=== PATIENT | female | born 1935 | race Caucasian/White ===

== ENCOUNTER → 2016-10-01 | Outpatient (CLI) | payer OTHER, MEDICARE ==
[~2016-10-01] MED LIST: FMR25 PO; LEVO100T7 PO; LNX125 PO; METO-217 PO; METO-551 PO; MULTTAB58 PO; PRLSR20 PO; RIVA1TAB4 PO; SIMV10TA2 PO; ZOLP10TA6 PO
== END | disposition home or self-care (01) ==
LOC: C.PATHSPEC 15:39
PROVIDERS: ATTEND Surgery
DX: C50.912 Malignant neoplasm of unspecified site of left female breast (principal)

== ENCOUNTER → 2016-10-14 | Outpatient (CLI) | payer OTHER, MEDICARE ==
--- NOTE | 2016-10-14 15:00 | MAMMOGRAPHY REPORT ---
THIS REPORT HAS BEEN AMENDED. UNILATERAL LEFT DIGITAL DIAGNOSTIC MAMMOGRAM TOMOSYNTHESIS WITH CAD AND TARGETED LEFT ULTRASOUND: CLINICAL HISTORY: 81-year-old woman presents prior to radiation therapy in the left breast. She has a large palpable mass at the surgical site status post lumpectomy. TECHNIQUE: Left breast CC and MLO 2-D digital and tomosynthesis images and left X cc L views were o btained. Current study was also evaluated with a Computer Aided Detection (CAD) system. COMPARISON: Comparison is made to exams dated: 08/28/2016 specimen, 08/28/2016 localization, and 07/23 mammogram - [facility]. BREAST COMPOSITION: The tissue of the left breast is heterogeneously dense, which may obscure small masses. FINDINGS: There is a new large dense ovoid mass with indistinct borders occupying the superior, cent ral and lateral left breast, measuring approximately 8 x 5 cm in greatest dimension 2 new surgical c lips are seen in place in the left upper outer posterior breast. There are moderate vascular calcif ications. There is diffuse left breast skin thickening and trabecular edema, likely related to prio r surgery. Further characterization with ultrasound was performed. Real-time high-resolution sonographic evaluation was performed along the surgical scar in the upper outer quadrant of the left breast over the visible mass which was pointed out by the patient. There is also mild skin ecchymosis in the area of the mass noted on visual inspection. Approximate measu rements obtained based on visual evaluation of the mass on the skin surface are 5 x 10 cm. On ultra sound, there is a mixed echogenicity predominantly hypoechoic and anechoic cystic appearing mass wit h posterior acoustic enhancement. The internal echoes are somewhat lacelike and reticular. It is d ifficult to obtain accurate measurements on ultrasound to given that the mass is larger in the field -of-view. Again, mammographic measurements are approximately 8 x 5 cm. Differential considerations include a postsurgical seroma, hematoma and abscess. After further discussion with the patient, freddie vargas denies any fevers, chills, erythema or other signs to suggest abscess. Therefore, this most likel y represents a postsurgical hematoma. IMPRESSION: ACR BI-RADS CATEGORY 2: BENIGN, TARGETED ULTRASOUND ACR BI-RADS CATEGORY 2: BENIGN There is evidence of recent surgery within the left breast with a new large (8 x 5 cm) mixed echogen icity fluid collection occupying most of the superior and lateral breast in the area of prior surger y. Given that the patient denies any symptoms of fever, chills, warmth or tenderness over the area of concern, this is not thought to represent an abscess and an evolving post surgical hematoma is th e most likely process. Given the amount of internal echoes it is doubtful this would be amenable to percutaneous drainage. These results and recommendations were discussed with the patient at the time of the exam. Approximately 10% of breast cancers are not detected with mammography. A negative mammographic repor t should not delay biopsy if a clinically suggestive mass is present. Odette Pate M.D. ay/:10/14/2016 12:44:47 Garage Attendant: Shira ROBLES(Nettie)(M), [facility] letter sent: Normal 1/ BI-RADS Code: ACR BI-RADS Category 2: Benign Ultrasound BI-RADS: ACR BI-RADS Category 2: Benign AMENDMENT: 10/17/2016 Odette Pate M.D. In addition to evaluating the left breast palpable mass, targeted sonographic evaluation was perform ed in the left axilla to assess for any suspicious lymphadenopathy. 2 lymph nodes are identified. The first lymph node identified in the mid axilla measures 10 mm in length. It maintains a normal e chogenic fatty hilum and has a mildly undulating thin hypoechoic cortex. Measured in different loca tions, the cortical thickness ranges from 0.6 to 2.6 mm. The cortical thickness is within the range of normal and this lymph node is considered morphologically normal. It is similar in size and marge ical thickness as on the 08/07/2016 ultrasound. A second smaller lymph node measuring 6.[address] [facility] has a cortical thickness of 0.8 mm. This also maintains a normal prominent echogenic fatty hilu m. No suspicious left axillary lymphadenopathy is seen. These results were discussed with Dr. Copeland on 10/16/2016. After further discussion it seems reason able to repeat a targeted left axillary ultrasound when the patient follows up in 6 months after rad iation therapy. Amended BI-RADS: ACR BI-RADS Category 2: Benign
== END | disposition home or self-care (01) ==
LOC: C.MAMM 10:29
PROVIDERS: ATTEND Radiology Radiation Oncology
DX: I89.0 Lymphedema, not elsewhere classified (principal); Z98.890 Other specified postprocedural states

== ENCOUNTER → 2016-10-29 | Outpatient (CLI) | payer OTHER, MEDICARE ==
--- NOTE | 2016-10-29 13:09 | MAMMOGRAPHY REPORT ---
ASPIRATION LEFT BREAST: 10/29/2016 CLINICAL HISTORY: 81-year-old woman with left breast cancer status post lumpectomy on 08/28/2016 pre sents for attempted aspiration of a postsurgical seroma/evolving hematoma prior to radiation therapy . COMPARISON: Comparison is made to exams dated: 10/14/2016 mammogram, 10/14/2016 ultrasound, 08/28/2016 specimen, 08/09/2016 mammogram, and 08/09/2016 ultrasound biopsy - [facility]. PATIENT CONSENT: After explaining the risks, benefits and alternatives of the procedure to the patie nt, informed consent was obtained verbally and in writing. Specific risks include: bleeding, infecti on and puncture of adjacent structure. A time out was preformed in the left breast was agreed as the site for fluid collection aspiration. Prior to aspiration, repeat targeted ultrasound was performed in the area of mass, most likely repre senting an evolving postsurgical hematoma. The hematoma is more hypoechoic as opposed to anechoic a nd there are less interspersed anechoic cystic spaces when comparing to prior ultrasounds. This is expected evolution of blood products. Nevertheless, the skin of the left breast was prepped and temo ped in the usual sterile fashion. 1% buffered lidocaine without epinephrine was administered subcut aneously and intraparenchymally as local anesthesia. A 22-gauge needle was advanced to the site of the mass and aspiration was performed. No significant fluid was able to be aspirated. Then the nee dle switched to an 18-gauge needle and aspiration was again performed. Again, no significant fluid was able to be aspirated. These findings confirm thick fibrinous blood products. Then the procedur e was terminated and the patient left the department in satisfactory condition after holding mild pr essure for a few minutes after the procedure. IMPRESSION: ASPIRATION Status post attempted aspiration of a probable evolving postsurgical hematoma at the lumpectomy bed in the 12:00 to 2:00 axes of the left breast. No significant fluid was able to be aspirated from th e collection. These findings were discussed with the patient at the time of the exam. Await follow-up of the left breast at approximately 6 months status post radiation therapy. Odette Pate M.D. ay/:10/29/2016 12:44:39 Booster Operator: Shira Taylor, [facility]
== END | disposition home or self-care (01) ==
LOC: C.MAMM 09:31
PROVIDERS: ATTEND Surgery
DX: C50.912 Malignant neoplasm of unspecified site of left female breast (principal); N64.89 Other specified disorders of breast; Z98.890 Other specified postprocedural states

== ENCOUNTER → 2016-12-25 | Outpatient (CLI) | payer OTHER, MEDICARE ==
[2016-12-25 13:34] VITALS: BP 135/78; PULSE 64; TEMP 36.6; O2SAT 94
--- NOTE | 2016-12-25 14:52 | Radiation Oncology Follow-Up ---
Radiation Oncology Follow-Up Date of Visit Dec 25, 2016. (Bhavana Torres PA-C) Reason For Visit One-month follow-up (Bhavana Torres PA-C) Radiation Completion Date finished 11-20-2016 and 09-29-2000 to left breast (Bhavana Torres PA-C) Diagnosis (1) Carcinoma of left breast Status: Acute Onset Date: 08/09/2016 Stage: l Permanent Comment: STAGIN. Left breast cancer, IDC, triple negative, [id number], stage II - 1999 2. Left breast cancer, IDC, triple positive, grade 3, [id number], stage I - 2017 Status post left breast biopsy 03/14/2000 revealing adenocarcinoma Estrogen receptor negative progesterone receptor negative HER-2/catherine negative Status post lumpectomy and sentinel lymph node biopsy 04/02/2000 Stage pT1c pN1 M0 Systemic chemotherapy Status post completion of radiation therapy 09/29/2000 received 6120 cGy Abnormal left breast mammogram 07/26/2016 Status post biopsy revealing infiltrating ductal carcinoma grade 1, 08/09/2016 Estrogen receptor positive, progesterone receptor positive, HER-2/catherine positive Status post lumpectomy 08/28/2016 Stage pT1b NX Status post completion of radiation therapy 11/20/2016 received 3850 cGy Last Edited By: Bhavana Torres on Dec 06, 2016 12:48 (Bhavana Torres PA-C) History of Present Illness Ms. Mo is a 81-year-old female with a previous history of stage II left breast cancer (triple negative) treated with a lumpectomy/ALND, adjuvant chemotherapy and adjuvant radiation therapy which completed in 2000. More recently, the patient did have a bilateral screening mammogram on 07/26/2016 which did reveal a 9 mm mass in the left upper-outer quadrant of the left breast. She did undergo a left diagnostic mammogram with targeted ultrasound on 08/07/2016 which revealed an indeterminate microlobulated 9.5 mm hypoechoic solid mass in the left 1:00 breast. 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 The tumor was estrogen receptor positive, progesterone receptor positive and HER-2 positive. The patient was subsequently referred to Dr. Elder Zhang who discussed treatment options including mastectomy and lumpectomy. Based on the patient's age and personal request, the patient underwent a lumpectomy without sentinel lymph node assessment. 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 There was no evidence of lymphovascular space invasion or perineural invasion. The margins were negative. The tumor was stages pathologic [id number]. The patient was subsequently seen by Dr. Stefan Huddleston for medical oncology who potentially discussed both anti-hormonal therapy and systemic chemotherapy due to the Her2 positivity. Dr. Huddleston did also discuss the role of a potential lymph node dissection with Dr. Zhang and the role of it is still currently being evaluated. We were asked to evaluate the patient for consideration of radiation therapy. Because of the prior radiation therapy it was felt that the patient would best be treated with accelerated partial breast treatment. This was completed on 09/2016. She received 3850 cGy. (Bhavana Torres PA-C) Interim History She's been doing well over this past month. She did notice a the past 2 days an area of redness in the outer upper outer portion of the left breast. She denies any pain. There is been no peeling of the skin. No areas of drainage. She has noticed no change of the axilla. She's been seen by medical oncology and has started Femara. She is tolerating this well and has no side effects. She is currently not set up for mammography. (Bhavana Torres PA-C) Allergies Coded Allergies: No Known Allergies (Verified , 08/28/16) Home Medications Scheduled Digoxin (Digoxin), 0.125 MG PO Q2D Letrozole (Femara), 2.5 MG PO DAILY Levothyroxine Sodium (Levothyroxine Sodium), 1 TAB PO QAM Metoprolol Succinate (Toprol Xl), 50 MG PO BID Multiple Vitamin (Multivitamin), 1 TAB PO QAM Omeprazole (Prilosec), 20 MG PO BID Rivaroxaban (Xarelto), 20 MG PO QPM Simvastatin (Zocor), 10 MG PO HS Zolpidem Tartrate (Zolpidem Tartrate), 7.5 MG PO HS Scheduled PRN Metoprolol Tartrate (Lopressor), 50 MG PO for palpitatons Review of Systems Gastrointestinal: Symptoms: WNL Oral: Symptoms: No Problems Respiratory: Symptoms: WNL Other Respiratory: " sinus drainage " Urinary: Symptoms: WNL Skin: Symptoms: No Problems Breast: Right Upper Arm Measurement: 30.5 Right Mid Arm Measurement: 25.0 Right Wrist Measurement: 17.0 Left Upper Arm Measurement: 31.4 Left Mid Arm Measurement: 25.0 Left Wrist Measurement: 17.5 Arm Dominence: Right Patient Cosmetic Evaluation: Fair Staff Cosmetic Evalaluation: Fair Additional Notes: She completed a distress management report and answered "no" to all questions. (Bhavana Torres PA-C) Physical Exam Vital Signs Date Time Temp Pulse Resp B/P Pulse Ox O2 Delivery O2 Flow Rate FiO2 12/25/16 13:34 36.6 64 16 135/78 94 Pain: Side: Bilateral Patient Pain Scale: 0 - 10 Initial Pain Intensity: 0.0 Fatigue: None General Appearance: no apparent distress Eyes: normal inspection, EOMI ENT: normal ENT inspection, hearing grossly normal Neck: no adenopathy, thyroid normal Respiratory/Chest: lungs clear, no respiratory distress, no accessory muscle use Breast: Breast examination reveals well-healed incisions of the left breast. There is a small area of erythema in the upper outer quadrant. There is no wet or dry desquamation. The firmness of the seroma is steadily improving. There is no axillary adenopathy. Using the [place] score cosmesis she has a good outcome. The right breast showed no masses or tenderness no axillary adenopathy. Cardiovascular: regular rate, rhythm, no gallop, no murmur Extremities: no pedal edema Neurologic/Psychiatric: no motor/sensory deficits, alert, normal mood/affect (Bhavana Torres PA-C) Laboratory Studies Test 10/01/16 00:00 HER-2 (FISH) See Comment (Bhavana Torres PA-C) Assessment & Plan Plan: She was also seen and examined by Dr. Copeland. She was given Aquaphor to the provider to the area of erythema. We discussed that the seroma steadily improving. Digital diagnostic mammography was scheduled. We'll check the left breast in 2 months. She'll also have an ultrasound of the axilla. She will have bilateral mammography in 8 months. She continues on the Femara. Continue follow-up with Dr. Huddleston and her PCP. We asked her to return to our office in 6 months. She will call if she has any questions or concerns in the interim. (Bhavana Torres PA-C) I agree with note created by Bhavana Torres PA-C. I reviewed the patient's chart and information with her. I have examined and evaluated the patient. I reviewed relevant clinical information and answered the patient's and/or family' s questions. (Veeral. Copeland MD) Total Time In Follow-Up I spent 20 minutes speaking to the patient and performing examination. As spent 15 minutes reviewing information and completing this note. (Bhavana Torres PA-C) I spent 15 minutes examining and counseling the patient. (Veeral. Copeland MD) Copy To Stefan Huddleston MD; Karin De La Cruz,
== END | disposition home or self-care (01) ==
LOC: C.ONC 13:16
PROVIDERS: ATTEND Physician Assistant Medical
DX: Z08 Encounter for follow-up examination after completed treatment for malignant neoplasm (principal); Z92.3 Personal history of irradiation; Z85.3 Personal history of malignant neoplasm of breast

== ENCOUNTER → 2017-02-26 | Outpatient (CLI) | payer OTHER, MEDICARE ==
[2017-02-26 17:21] LABS: BASO % 0.5 %; BASO ABS # 0.03 K/uL (0-0.2); COMPLETE YES; EOS % 5.2 %; HEMATOCRIT 45.1 % (37-47); IG% 0.2 %; LYMPH % 34.4 %; LYMPH ABS # 2.06 K/uL (1.2-3.4); MEAN CELL VOLUME 89.1 fL (80-100); MEAN CORPUSCULAR HGB CONC 33.7 g/dl (32-36); MEAN PLATELET VOLUME 9.7 fL (7.4-10.4); NEUT % 51.7 %; PLATELET COUNT 189 K/uL (130-400); RED BLOOD COUNT 5.06 M/uL (4.2-5.4); WHITE BLOOD COUNT 5.98 K/uL (4.8-10.8)
[2017-02-26 18:15] LABS: ALT/SGPT 32 U/L (12-78); BLOOD UREA NITROGEN 11 mg/dl (7-18); CARBON DIOXIDE 25 mmol/L (21-32); CHLORIDE 106 mmol/L (98-107); CREATININE 0.66 mg/dl (0.60-1.20); GLUCOSE 112 mg/dl (70-99); POTASSIUM 3.9 mmol/L (3.5-5.1); SODIUM 142 mmol/L (136-145)
[2017-02-26 18:18] LABS: ALB/GLOB RATIO 1.1 (0.9-2); ALKALINE PHOSPHATASE 49 U/L (45-117); AST/SGOT 20 U/L (15-37)
[2017-02-26 18:35] LABS: CALCIUM 9.3 mg/dl (8.5-10.1)
== END | disposition home or self-care (01) ==
LOC: C.LABPBG 11:52
PROVIDERS: ATTEND Internal Medicine Hematology & Oncology
DX: C50.112 Malignant neoplasm of central portion of left female breast (principal)

== ENCOUNTER → 2017-03-18 | Outpatient (CLI) | payer OTHER, MEDICARE ==
--- NOTE | 2017-03-18 15:39 | MAMMOGRAPHY REPORT ---
UNILATERAL LEFT DIGITAL DIAGNOSTIC MAMMOGRAM TOMOSYNTHESIS WITH CAD AND TARGETED LEFT ULTRASOUND: 02/21 CLINICAL HISTORY: 82-year-old woman with a history of left breast cancer diagnosed in July 2016 p resents to establish new baseline in the left breast after lumpectomy and radiation therapy. TECHNIQUE: Left CC and MLO 2-D digital and tomosynthesis images, spot magnification left CC and ML v iews were obtained. Current study was also evaluated with a Computer Aided Detection (CAD) system. COMPARISON: Comparison is made to exams dated: 10/29/2016 aspiration, 10/14/2016 mammogram, 08/28/2016 s pecimen, 08/28/2016 localization, 08/09/2016 mammogram, and 08/09/2016 ultrasound biopsy - [facility]. BREAST COMPOSITION: The tissue of the left breast is heterogeneously dense, which may obscure small masses. FINDINGS: There is evidence of prior treatment in the left breast including diffuse trabecular edema and mild diffuse skin thickening. A complex fluid collection in the upper outer quadrant of the left breast has decreased in size since the prior mammograms performed 10/14/2016, currently measuring 2. 6 x 5.6 x 2.3 cm, previously measuring 4.7 x 8.0 x 5.2 cm. This is compatible with a resolving posts urgical seroma and/or hematoma. There are are moderate vascular calcifications in the left breast. No suspicious mass, architectural distortion or cluster of suspicious microcalcifications. Targeted ultrasound was performed in the left axilla. A few morphologically normal lymph nodes withi n cortices are seen. There is no evidence of suspicious adenopathy. IMPRESSION: ACR-BI-RADS CATEGORY 3: PROBABLY BENIGN, TARGETED ULTRASOUND ACR-BI-RADS CATEGORY 3: PRO BABLY BENIGN Expected post treatment changes in the left breast with a decreasing postsurgical seroma/hematoma carroll r the surgical site in the upper outer quadrant. No suspicious adenopathy seen in the left axilla on targeted ultrasound. Bilateral diagnostic mammography is due in July 2017. These results and r ecommendations were discussed with the patient at the time of the exam. Approximately 10% of breast cancers are not detected with mammography. A negative mammographic report should not delay biopsy if a clinically suggestive mass is present. Odette Pate M.D. ay/:03/18/2017 14:25:32 Commodities Requirements Analyst: Madeline Talavera RT(R)(M), [facility] letter sent: Follow Up Recommended 3 BI-RADS Code: ACR-BI-RADS Category 3: Probably Benign Ultrasound BI-RADS: ACR-BI-RADS Category 3: Pr obably Benign
== END | disposition home or self-care (01) ==
LOC: C.MAMM 13:50
PROVIDERS: ATTEND Physician Assistant Medical
DX: Z08 Encounter for follow-up examination after completed treatment for malignant neoplasm (principal); Z85.3 Personal history of malignant neoplasm of breast; Z98.890 Other specified postprocedural states; Z92.3 Personal history of irradiation

== ENCOUNTER → 2017-07-01 | Outpatient (CLI) | payer OTHER, MEDICARE ==
[2017-07-01 12:52] VITALS: BP 114/71; PULSE 65; TEMP 36.6; O2SAT 95
--- NOTE | 2017-07-01 13:37 | Radiation Oncology Follow-Up ---
Radiation Oncology Follow-Up Date of Visit Jul 01, 2017. Reason For Visit 6 month follow up Radiation Completion Date finished 11-20-16 , 09-29-2000 / left breast Diagnosis (1) Carcinoma of left breast Status: Acute Onset Date: 08/09/2016 Permanent Comment: STAGIN. Left breast cancer, IDC, triple negative, [id number], stage II - 1999 2. Left breast cancer, IDC, triple positive, grade 3, [id number], stage I - 2017 Status post left breast biopsy 03/14/2000 revealing adenocarcinoma Estrogen receptor negative progesterone receptor negative HER-2/catherine negative Status post lumpectomy and sentinel lymph node biopsy 04/02/2000 Stage pT1c pN1 M0 Systemic chemotherapy Status post completion of radiation therapy 09/29/2000 received 6120 cGy Abnormal left breast mammogram 07/26/2016 Status post biopsy revealing infiltrating ductal carcinoma grade 1, 08/09/2016 Estrogen receptor positive, progesterone receptor positive, HER-2/catherine positive Status post lumpectomy 08/28/2016 Stage pT1b NX Status post completion of radiation therapy 11/20/2016 received 3850 cGy Last Edited By: Bhavana Torres on Dec 06, 2016 12:48 History of Present Illness Ms. Belcher is a 81-year-old female with a previous history of stage II left breast cancer (triple negative) treated with a lumpectomy/ALND, adjuvant chemotherapy and adjuvant radiation therapy which completed in 2000. More recently, the patient did have a bilateral screening mammogram on 07/26/2016 which did reveal a 9 mm mass in the left upper-outer quadrant of the left breast. She did undergo a left diagnostic mammogram with targeted ultrasound on 08/07/2016 which revealed an indeterminate microlobulated 9.5 mm hypoechoic solid mass in the left 1:00 breast. 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 The tumor was estrogen receptor positive, progesterone receptor positive and HER-2 positive. The patient was subsequently referred to Dr. Elder Zhang who discussed treatment options including mastectomy and lumpectomy. Based on the patient's age and personal request, the patient underwent a lumpectomy without sentinel lymph node assessment. 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 There was no evidence of lymphovascular space invasion or perineural invasion. The margins were negative. The tumor was stages pathologic T1bNx. The patient was subsequently seen by Dr. Stefan Huddleston for medical oncology who potentially discussed both anti-hormonal therapy and systemic chemotherapy due to the Her2 positivity. Dr. Huddleston did also discuss the role of a potential lymph node dissection with Dr. Zhang and the role of it is still currently being evaluated. We were asked to evaluate the patient for consideration of radiation therapy. Because of the prior radiation therapy it was felt that the patient would best be treated with accelerated partial breast treatment. This was completed on 09/2016. She received 3850 cGy. Interim History She has been doing well over this past year. She denies any changes to her breast. She is noted no masses or tenderness and no change of the axilla. She' s had no swelling of her arm. She is up-to-date on mammography. She was seen in medical oncology evidence was taking Femara. She developed increasing fatigue and recurrent hot flashes. She discuss this with Dr. Huddleston. He gave her a new antiestrogen medication. She stated she took this to the pharmacy and it was going to be quite expensive. She made the decision not to take the medication. Allergies Coded Allergies: No Known Allergies (Verified , 08/28/16) Home Medications Scheduled Digoxin (Digoxin), 0.125 MG PO Q2D Levothyroxine Sodium (Levothyroxine Sodium), 1 TAB PO QAM Metoprolol Succinate (Toprol Xl), 50 MG PO BID Multiple Vitamin (Multivitamin), 1 TAB PO QAM Omeprazole (Prilosec), 20 MG PO BID Rivaroxaban (Xarelto), 20 MG PO QPM Simvastatin (Zocor), 10 MG PO HS Zolpidem Tartrate (Zolpidem Tartrate), 7.5 MG PO HS Scheduled PRN Metoprolol Tartrate (Lopressor), 50 MG PO for palpitatons Review of Systems Gastrointestinal: Symptoms: WNL Oral: Symptoms: No Problems Respiratory: Symptoms: WNL Other Respiratory: " sinus drainage " Urinary: Symptoms: Incontinence Comments: "dribbles in the Am " Skin: Symptoms: No Problems Other Skin Symptoms: "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 " Breast: Right Upper Arm Measurement: 28.0 Right Mid Arm Measurement: 24.0 Right Wrist Measurement: 16.3 Left Upper Arm Measurement: 30.0 Left Mid Arm Measurement: 24.3 Left Wrist Measurement: 16.8 Arm Dominence: Right Patient Cosmetic Evaluation: Excellent Staff Cosmetic Evalaluation: Excellent Physical Exam Vital Signs Date Time Temp Pulse Resp B/P (MAP) Pulse Ox O2 Delivery O2 Flow Rate FiO2 07/01/17 12:52 36.6 65 16 114/71 95 Pain: Side: Bilateral Patient Pain Scale: 0 - 10 Initial Pain Intensity: 0.0 Fatigue: Moderate General Appearance: no apparent distress Eyes: normal inspection, EOMI ENT: normal ENT inspection, hearing grossly normal Neck: no adenopathy, thyroid normal Respiratory/Chest: lungs clear, no respiratory distress, no accessory muscle use Breast: Breast examination reveals well-healed incisions of the left breast. There is generalized fibrous changes. There are no distinct masses. There is no tenderness. She has no axillary adenopathy. Mild hyperpigmentation. Using the [place] score cosmesis she has a good outcome. Right breast showed no masses or tenderness and no axillary adenopathy. Mild fibrocystic changes in the upper outer quadrant. Cardiovascular: regular rate, rhythm, no gallop, no murmur Abdomen: non tender, soft, no organomegaly Extremities: no pedal edema Neurologic/Psychiatric: no motor/sensory deficits, alert, normal mood/affect Skin: warm/dry Additional Studies Patient: LUPILLO BELCHER [facility] Rec: [id number] Address1: [address] [place] [address] Address2: Acct ID: [id number] Date: 1935 Sex: F Ref Phy: Bhavana Torres PA-C Att Phy: Bhavana Torres PA-C Katey Phy: Karin De La Cruz DO Inter Phy: Odette Pate MD [facility] Zip: [place] [address] SC: C.MAMM Report #: [id number] Loss Prevention Operations Manager: MARTINE Diagnosis: 6 MO F/U LEFT Service Date: 03/18/17 MNE: [id number] Ordering Dr: Bhavana Torres PA-C CC: Bhavana Torres PA-C CONF: DICTATED BY: Odette Pate MD MAMMOGRAPHY REPORT UNILATERAL LEFT DIGITAL DIAGNOSTIC MAMMOGRAM TOMOSYNTHESIS WITH CAD AND TARGETED LEFT ULTRASOUND: 03/18/2017 CLINICAL HISTORY: 82-year-old woman with a history of left breast cancer diagnosed in July 2016 presents to establish new baseline in the left breast after lumpectomy and radiation therapy. TECHNIQUE: Left CC and MLO 2-D digital and tomosynthesis images, spot magnification left CC and ML views were obtained. Current study was also evaluated with a Computer Aided Detection (CAD) system. COMPARISON: Comparison is made to exams dated: 10/29/2016 aspiration, 10/14/2016 mammogram, 08/28/2016 specimen, 08/28/2016 localization, 08/09/2016 mammogram, and 08/09/2016 ultrasound biopsy - [facility]. BREAST COMPOSITION: The tissue of the left breast is heterogeneously dense, which may obscure small masses. FINDINGS: There is evidence of prior treatment in the left breast including diffuse trabecular edema and mild diffuse skin thickening. A complex fluid collection in the upper outer quadrant of the left breast has decreased in size since the prior mammograms performed 10/14/2016, currently measuring 2.6 x 5.6 x 2.3 cm, previously measuring 4.7 x 8.0 x 5.2 cm. This is compatible with a resolving postsurgical seroma and/or hematoma. There are are moderate vascular calcifications in the left breast. No suspicious mass, architectural distortion or cluster of suspicious microcalcifications. Targeted ultrasound was performed in the left axilla. A few morphologically normal lymph nodes within cortices are seen. There is no evidence of suspicious adenopathy. IMPRESSION: ACR-BI-RADS CATEGORY 3: PROBABLY BENIGN, TARGETED ULTRASOUND ACR-BI -RADS CATEGORY 3: PROBABLY BENIGN Expected post treatment changes in the left breast with a decreasing postsurgical seroma/hematoma near the surgical site in the upper outer quadrant. No suspicious adenopathy seen in the left axilla on targeted ultrasound. Bilateral diagnostic mammography is due in July 2017. These results and recommendations were discussed with the patient at the time of the exam. Approximately 10% of breast cancers are not detected with mammography. A negative mammographic report should not delay biopsy if a clinically suggestive mass is present. Odette Pate M.D. ay/:03/18/2017 14:25:32 Dietary Aide Cook: Madeline BELCHER)(Nyla), [facility] letter sent: Follow Up Recommended 3 BI-RADS Code: ACR-BI-RADS Category 3: Probably Benign Ultrasound BI-RADS: ACR- BI-RADS Category 3: Probably Benign Dictated by: Odette Pate MD Signed by: Odette Pate MD Assessment & Plan Plan: She has a recheck mammogram scheduled for the end of June. This will be a diagnostic mammogram. It will be bilateral. She'll continue follow-up with her primary care physician. She has made the decision not to take any further antiestrogen therapy. We discussed recheck breast examination. She plan to return for recheck examination in 6 months to our office. Results of the mammogram in June will be reviewed. She may call if she has any questions or concerns in the interim. Total Time In Follow-Up I spent 20 minutes speaking with the patient performing examination. I spent 15 minutes reviewing information completing this note. Copy To Karin De La Cruz DO Problem Qualifiers (1) Carcinoma of left breast: Breast location: upper outer quadrant of breast Estrogen receptor status: positive Patient sex: female Qualified Codes: C50.412 - Malignant neoplasm of upper-outer quadrant of left female breast; Z17.0 - Estrogen receptor positive status [ER+]
== END | disposition home or self-care (01) ==
LOC: C.ONC 12:44
PROVIDERS: ATTEND Physician Assistant Medical
DX: Z08 Encounter for follow-up examination after completed treatment for malignant neoplasm (principal); Z92.3 Personal history of irradiation; Z85.3 Personal history of malignant neoplasm of breast

== ENCOUNTER → 2017-07-18 | Outpatient (CLI) | payer OTHER, MEDICARE ==
[~2017-07-18] MED LIST changes: -FMR25 PO
[2017-07-18 17:28] LABS: ALT/SGPT 48 U/L (12-78); AST/SGOT 23 U/L (15-37); BLOOD UREA NITROGEN 9 mg/dl (7-18); BUN/CREATININE RATIO 15.2 (10-20); CALCIUM 8.9 mg/dl (8.5-10.1); CARBON DIOXIDE 28 mmol/L (21-32); CHLORIDE 107 mmol/L (98-107); CREATININE 0.62 mg/dl (0.60-1.20); GLUCOSE 101 mg/dl (70-99); POTASSIUM 3.6 mmol/L (3.5-5.1); SODIUM 141 mmol/L (136-145)
[2017-07-18 17:40] LABS: ALB/GLOB RATIO 1.1 (0.9-2); ALKALINE PHOSPHATASE 46 U/L (45-117); CHOLESTEROL 164 mg/dl (0-200); CHOLESTEROL/HDL RATIO 3.3; HDL CHOLESTEROL 50 mg/dl; LDL CHOLESTEROL CALCULATED 86 mg/dl; TRIGLYCERIDES 138 mg/dl (0-150); VERY LOW DENSITY LIPOPROT CALC 28 mg/dl
== END | disposition home or self-care (01) ==
LOC: C.LABPBG 11:34
PROVIDERS: ATTEND Family Medicine
DX: E03.9 Hypothyroidism, unspecified (principal); E78.00 Pure hypercholesterolemia, unspecified

== ENCOUNTER → 2017-09-25 | Outpatient (CLI) | payer OTHER, MEDICARE ==
[~2017-09-25] MED LIST changes: +MGCUDL400 PO
--- NOTE | 2017-10-01 08:19 | CODING QUERY MEDICAL NECESSITY ---
CQSUPPORTING DIAGNOSIS NEEDED A supporting diagnosis is required for the test/procedure performed on this patient in order for us to be reimbursed by the patient's insurance. Please provide a supporting diagnosis for the following test/procedure listed below next to the test name along with your signature. *If there is no additional diagnosis for this patient that would support the following test/procedure please document that below next to the test/procedure. Test(s)/Procedure(s) that require a supporting diagnosis: DOS 09/25/17 URINE CULTURE Provider Signature: Date: Thank you Zina Pete [facility] [employer] Once completed, please kindly fax back to [phone] For questions please call [phone]
== END | disposition home or self-care (01) ==
LOC: C.LABPBG 10:49
PROVIDERS: ATTEND Family Medicine
DX: R42 Dizziness and giddiness (principal)

== ENCOUNTER → 2017-10-14 | Outpatient (CLI) | payer OTHER, MEDICARE ==
[~2017-10-14] MED LIST changes: -MGCUDL400 PO
== END | disposition home or self-care (01) ==
LOC: C.LABPBG 11:58
PROVIDERS: ATTEND Family Medicine
DX: R31.9 Hematuria, unspecified (principal)

== ENCOUNTER → 2017-12-31 | Outpatient (CLI) | payer OTHER, MEDICARE ==
[2017-07-01 12:52] VITALS: BP 114/71; PULSE 65
[2017-12-31 13:03] VITALS: BP 117/72; PULSE 66; TEMP 36.5; O2SAT 94
--- NOTE | 2017-12-31 14:04 | Radiation Oncology Follow-Up ---
Radiation Oncology Follow-Up Date of Visit Dec 31, 2017. Reason For Visit Annual follow-up Radiation Completion Date 11/20/16 Diagnosis (1) Carcinoma of left breast Status: Resolved Onset Date: 08/09/2016 Permanent Comment: STAGIN. Left breast cancer, IDC, triple negative, [id number], stage II - 1999 2. Left breast cancer, IDC, triple positive, grade 3, [id number], stage I - 2017 Status post left breast biopsy 03/14/2000 revealing adenocarcinoma Estrogen receptor negative progesterone receptor negative HER-2/catherine negative Status post lumpectomy and sentinel lymph node biopsy 04/02/2000 Stage pT1c pN1 M0 Systemic chemotherapy Status post completion of radiation therapy 09/29/2000 received 6120 cGy Abnormal left breast mammogram 07/26/2016 Status post biopsy revealing infiltrating ductal carcinoma grade 1, 08/09/2016 Estrogen receptor positive, progesterone receptor positive, HER-2/catherine positive Status post lumpectomy 08/28/2016 Stage pT1b NX Status post completion of radiation therapy 11/20/2016 received 3850 cGy Last Edited By: Bhavana Torres on Dec 06, 2016 12:48 History of Present Illness Ms. Belcher has a previous history of stage II left breast cancer (triple negative) treated with a lumpectomy/ALND, adjuvant chemotherapy and adjuvant radiation therapy which completed in 2000. More recently, the patient did have a bilateral screening mammogram on 07/26/2016 which did reveal a 9 mm mass in the left upper-outer quadrant of the left breast. She did undergo a left diagnostic mammogram with targeted ultrasound on 08/07/2016 which revealed an indeterminate microlobulated 9.5 mm hypoechoic solid mass in the left 1:00 breast. 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 The tumor was estrogen receptor positive, progesterone receptor positive and HER-2 positive. The patient was subsequently referred to Dr. Elder Zhang who discussed treatment options including mastectomy and lumpectomy. Based on the patient's age and personal request, the patient underwent a lumpectomy without sentinel lymph node assessment. 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 There was no evidence of lymphovascular space invasion or perineural invasion. The margins were negative. The tumor was stages pathologic T1bNx. The patient was subsequently seen by Dr. Stefan Huddleston for medical oncology who potentially discussed both anti-hormonal therapy and systemic chemotherapy due to the Her2 positivity. Dr. Huddleston did also discuss the role of a potential lymph node dissection with Dr. Zhang and the role of it is still currently being evaluated. We were asked to evaluate the patient for consideration of radiation therapy. Because of the prior radiation therapy it was felt that the patient would best be treated with accelerated partial breast treatment. This was completed on 09/2016. She received 3850 cGy. Interim History She has noticed no changes to her breast over the past year. She is noted no masses or tenderness no change of the axilla. She has had no swelling of her arm. She is up-to-date on mammography. She is scheduled for her next mammogram in January. She does have an area on her left wrist that she is concerned about. She has a previous history of a melanoma. She is going to make an appointment and show this to Dr. Givens. She had declined chemotherapy. She therefore has not followed up with medical oncology. Allergies Coded Allergies: No Known Allergies (Verified , 08/28/16) Home Medications Scheduled Digoxin (Digoxin), 0.125 MG PO Q2D Levothyroxine Sodium (Levothyroxine Sodium), 1 TAB PO QAM Metoprolol Succinate (Toprol Xl), 50 MG PO BID Multiple Vitamin (Multivitamin), 1 TAB PO QAM Omeprazole (Prilosec), 20 MG PO BID Rivaroxaban (Xarelto), 20 MG PO QPM Simvastatin (Zocor), 10 MG PO HS Zolpidem Tartrate (Zolpidem Tartrate), 10 MG PO HS Scheduled PRN Metoprolol Tartrate (Lopressor), 50 MG PO for palpitatons Review of Systems Gastrointestinal: Symptoms: WNL GI Comments: Occass. 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 " Breast: Right Upper Arm Measurement: 31.5 Right Mid Arm Measurement: 25.0 Right Wrist Measurement: 16.0 Left Upper Arm Measurement: 32.0 Left Mid Arm Measurement: 25.5 Left Wrist Measurement: 16.5 Arm Dominence: Right Patient Cosmetic Evaluation: Excellent Staff Cosmetic Evalaluation: Excellent Physical Exam Vital Signs Date Time Temp Pulse Resp B/P (MAP) Pulse Ox O2 Delivery O2 Flow Rate FiO2 12/31/17 13:03 36.5 66 18 117/72 94 Fatigue: None General Appearance: no apparent distress Eyes: normal inspection, EOMI ENT: normal ENT inspection, hearing grossly normal Neck: no adenopathy, thyroid normal Respiratory/Chest: lungs clear, no respiratory distress, no accessory muscle use Breast: Breast examination reveals well-healed incisions of the left breast. There is area of fibrous tissue in the upper outer quadrant of the breast. There are no distinct masses. There is no tenderness. There is no axillary adenopathy. Using the [place] score cosmesis she has a good outcome. The right breast revealed a area of firmness (possible mass) at the 10 o'clock position. This is nontender. This is mobile. There are no changes of the overlying skin. She has no axillary adenopathy. Cardiovascular: regular rate, rhythm, no gallop, no murmur Extremities: no pedal edema Neurologic/Psychiatric: no motor/sensory deficits, alert, normal mood/affect Skin: warm/dry Pain Management Patient Reports Pain: No Side: Bilateral Patient Preferred Pain Scale: 0 - 10 Initial Pain Intensity: 0.0 Pain Management Plan She denies pain therefore requires no pain management. Laboratory Laboratory Results: not applicable Pathology Pathology Results: not applicable Imaging Imaging Studies: were reviewed, and pertinent findings noted below Imaging Comments Patient: LUPILLO BELCHER [facility] Rec: [id number] Address1: [address] [place] [address] Address2: Acct ID: [id number] Date: 1935 Sex: F Ref Phy: Bhavana Torres PA-C Att Phy: Bhavana Torres PA-C Katey Phy: Karin De La Cruz DO Inter Phy: Odette Pate [facility] Zip: [place] [address] SC: [id number] Report #: [id number] Treatment Specialist: MARIYA Diagnosis: 6 MO F/U BILATERAL Service Date: 07/28/17 MNE: [id number] Ordering Dr: Bhavana Torres PA-C CC: Bhavana Torres PA-C CONF: DICTATED BY: Odette Pate MD MAMMOGRAPHY REPORT BILATERAL DIGITAL DIAGNOSTIC MAMMOGRAM TOMOSYNTHESIS WITH CAD: 07/28/2017 CLINICAL HISTORY: 82-year-old woman with a personal history of left breast cancer status post breast conservation treatment presents for close follow-up and left breast and routine screening of the right breast. TECHNIQUE: Bilateral breast tomosynthesis in addition to standard 2D mammography was performed. Spot magnification left cc and ML views were also obtained. Current study was also evaluated with a Computer Aided Detection (CAD ) system. COMPARISON: Comparison is made to exams dated: 03/18/2017 mammogram, 03/18/2017 ultrasound, 10/14/2016 mammogram, 08/07/2016 mammogram, 07/26/2016 mammogram, and 06/19/2015 mammogram - [facility]. BREAST COMPOSITION: The tissue of both breasts is heterogeneously dense, which may obscure small masses. FINDINGS: There is expected architectural distortion amongst surgical clips and persistent focal asymmetry in the upper outer middle one third of the left breast, denoting the lumpectomy site. Mild diffuse skin thickening and trabecular edema of the left breast compared to the right, likely related to radiation therapy. The remaining focal asymmetry at the surgical site in the left upper outer quadrant has decreased in size comparing to prior mammograms, currently measuring 4.3 x 1.6 x 2.0 cm, and has significantly decreased comparing to the 10/14/2016 exams at which time it measured 8.0 x 5.1 x 5.3 cm. No new suspicious mass, architectural distortion or cluster of microcalcifications is seen bilaterally. There are mild to moderate vascular calcifications in the breasts. IMPRESSION: ACR-BI-RADS CATEGORY 3: PROBABLY BENIGN 1. Stable mammographic appearance of the right breast, without mammographic evidence of malignancy. Recommend routine screening in 1 year. 2. Expected posttreatment changes in the left breast, with continued decrease in size of a postsurgical seroma and/or hematoma at the surgical site in the upper outer quadrant. Another short interval follow-up left diagnostic tomosynthesis mammogram and possible ultrasound is recommended in 6 months. These results and recommendations were discussed with the patient at the time of the exam. Approximately 10% of breast cancers are not detected with mammography. A negative mammographic report should not delay biopsy if a clinically suggestive mass is present. Odette Pate M.D. ay/:07/28/2017 15:32:52 Bilingual Medical Assistant: Nia BELCHER)(Nyla), [facility] letter sent: Follow Up Recommended 3 BI-RADS Code: ACR-BI-RADS Category 3: Probably Benign Dictated by: Odette Pate MD Signed by: Odette Pate MD Assessment & Plan Plan: The patient is also seen and examined by Dr. Copeland. A diagnostic mammogram of the right breast is ordered as well as ultrasound. She is due for her left breast mammogram in January. We will try to move this up so that all imaging can be completed on the same day. Will await the findings of these studies. She may need to be scheduled for an FNA or core needle biopsy depending on the outcome. If all studies are negative we asked her to return to our office in 6 months. She may call our office if she has any questions or concerns in the interim. She will continue regular follow-up with her primary care physician who is also doing breast examinations. Assessment & Plan (Attending) I agree with note created by Bhavana Torres PA-C. I reviewed the patient's chart and information with her. I have examined and evaluated the patient. I reviewed relevant clinical information and answered the patient's and/or family' s questions. ANODIC TREATER Total Time In Follow-Up I spent 25 minutes speaking to the patient and performing examination. I spent 15 minutes reviewing information and completing this note. AK Total Time (Attending) In Follow-Up I spent 15 minutes examining and counseling the patient. ANODIC TREATER Copy To Karin De La Cruz DO
== END | disposition home or self-care (01) ==
LOC: C.ONC 12:57
PROVIDERS: ATTEND Physician Assistant Medical
DX: Z08 Encounter for follow-up examination after completed treatment for malignant neoplasm (principal); Z92.3 Personal history of irradiation; Z85.3 Personal history of malignant neoplasm of breast

== ENCOUNTER → 2018-01-07 | Outpatient (CLI) | payer OTHER, MEDICARE ==
--- NOTE | 2018-01-07 15:14 | MAMMOGRAPHY REPORT ---
BILATERAL DIGITAL DIAGNOSTIC MAMMOGRAM TOMOSYNTHESIS WITH CAD AND TARGETED RIGHT ULTRASOUND: 8 CLINICAL HISTORY: History of left breast cancer status post lumpectomy August 2016 as well as radia tion therapy. The patient reports that her provider felt a new palpable lump in the right breast dur ing a routine clinical exam. The patient cannot clearly feel the lump herself. TECHNIQUE: Breast tomosynthesis in addition to standard 2D mammography was performed. Current study was also evaluated with a Computer Aided Detection (CAD) system. Bilateral CC and MLO 2D and tomosyn thesis images and spot magnification left CC and MLO views were obtained. COMPARISON: Comparison is made to exams dated: 07/28/2017 mammogram, 03/18/2017 mammogram, 03/18/2017 u ltrasound, 10/29/2016 aspiration, 10/14/2016 mammogram, and 10/14/2016 ultrasound - [facility]. BREAST COMPOSITION: The tissue of both breasts is heterogeneously dense, which may obscure small mas ses. FINDINGS: A triangle marker nazario the site of the palpable lump pointed out by the patient in the rig ht upper outer quadrant. No suspicious masses or other suspicious mammographic abnormalities are see n in this region. Again noted are post surgical changes in the left upper outer quadrant from prior lumpectomy, including density, architectural distortion, and surgical clips at the lumpectomy bed. T he previously seen postsurgical seroma/hematoma at the surgical bed has progressively decreased landon red to the September 2016 exam. Mild diffuse left breast skin thickening is not significantly changed and is likely related to prior radiation therapy. There are no suspicious masses, calcifications, or areas of architectural distortion noted in either breast. Targeted ultrasound was performed of the area of the right breast lump felt by the patient's provider . The patient could not pinpoint the exact location of the lump although the provider order reports that the lump is located in the right 10 o'clock position. Ultrasound was performed of the right 10 to 12:00 breast, which shows sonographically normal tissue without evidence of a mass or other suspic ious sonographic abnormality. IMPRESSION: ACR BI-RADS CATEGORY 2: BENIGN, TARGETED ULTRASOUND ACR BI-RADS CATEGORY 2: BENIGN 1. No suspicious mammographic or sonographic abnormality in the general location of the right 10:00 breast lump felt by the patient's provider. Note that the patient cannot pinpoint the exact location of the lump. 2. Expected post surgical changes in the left breast status post lumpectomy. There is no mammographic or targeted sonographic evidence of malignancy. Recommend clinical follow-up for the palpable right breast lump; any decision to biopsy should be based on clinical grounds. Also recommend routine bilateral mammograms in one year. The patient has been verbally notified of the r esults. Approximately 10% of breast cancers are not detected with mammography. A negative mammographic report should not delay biopsy if a clinically suggestive mass is present. Ella Mclaughlin M.D. ah/:01/07/2018 11:07:02 Private Investigator: Shira ROBLES(Nettie)(M), [facility] letter sent: Normal 1/2 BI-RADS Code: ACR BI-RADS Category 2: Benign Ultrasound BI-RADS: ACR BI-RADS Category 2: Benign
== END | disposition home or self-care (01) ==
LOC: C.MAMM 10:13
PROVIDERS: ATTEND Physician Assistant Medical
DX: Z09 Encounter for follow-up examination after completed treatment for conditions other than malignant neoplasm (principal); N63.10 Unspecified lump in the right breast, unspecified quadrant; Z98.890 Other specified postprocedural states

== ENCOUNTER → 2018-01-13 | Outpatient (CLI) | payer OTHER, MEDICARE | END | disposition home or self-care (01) | LOC: C.LABSPEC 14:52 | PROVIDERS: ATTEND Family Medicine | DX: R39.9 Unspecified symptoms and signs involving the genitourinary system (principal) ==

== ENCOUNTER → 2018-01-14 | Outpatient (CLI) | payer OTHER, MEDICARE ==
[2018-01-14 17:21] LABS: HEMATOCRIT 44.3 % (37-47); HEMOGLOBIN 14.6 g/dL (12.0-16.0); MEAN CELL VOLUME 88.6 fL (80-100); MEAN CORPUSCULAR HEMOGLOBIN 29.2 pg (25-34); MEAN PLATELET VOLUME 8.9 fL (7.4-10.4); PLATELET COUNT 214 K/uL (130-400); RED CELL DISTRIBUTION WIDTH CV 13.9 % (11.5-14.5); RED CELL DISTRIBUTION WIDTH SD 45.2 fL (36.4-46.3); WHITE BLOOD COUNT 5.51 K/uL (4.8-10.8)
[2018-01-14 18:33] LABS: ALBUMIN 3.6 gm/dl (3.4-5.0); ALT/SGPT 31 U/L (12-78); AST/SGOT 22 U/L (15-37); BLOOD UREA NITROGEN 6 mg/dl (7-18); CALCIUM 8.5 mg/dl (8.5-10.1); CARBON DIOXIDE 29 mmol/L (21-32); CHOLESTEROL 140 mg/dl (0-200); CREATININE 0.74 mg/dl (0.60-1.20); GLUCOSE 95 mg/dl (70-99); POTASSIUM 3.4 mmol/L (3.5-5.1); SODIUM 139 mmol/L (136-145)
[2018-01-14 18:43] LABS: ALKALINE PHOSPHATASE 53 U/L (45-117); LDL CHOLESTEROL CALCULATED 73 mg/dl; TOTAL PROTEIN 7.3 gm/dl (6.4-8.2)
== END | disposition home or self-care (01) ==
LOC: C.LABPBG 11:02
PROVIDERS: ATTEND Family Medicine
DX: R53.83 Other fatigue (principal); I10 Essential (primary) hypertension; E03.9 Hypothyroidism, unspecified; M81.0 Age-related osteoporosis without current pathological fracture; E78.00 Pure hypercholesterolemia, unspecified; I48.0 Paroxysmal atrial fibrillation

== ENCOUNTER → 2018-01-22 | Outpatient (CLI) | payer OTHER, MEDICARE ==
[2018-01-22 14:07] LABS: BLOOD UREA NITROGEN 8 mg/dl (7-18); CALCIUM 9.1 mg/dl (8.5-10.1); CARBON DIOXIDE 26 mmol/L (21-32); CREATININE 0.63 mg/dl (0.60-1.20); GLUCOSE 110 mg/dl (70-99); POTASSIUM 3.6 mmol/L (3.5-5.1); SODIUM 138 mmol/L (136-145)
== END | disposition home or self-care (01) ==
LOC: C.LABPBG 10:08
PROVIDERS: ATTEND Family Medicine
DX: E87.6 Hypokalemia (principal); R31.9 Hematuria, unspecified

== ENCOUNTER 2018-01-26 15:07 | Inpatient (IN) | payer OTHER, MEDICARE ==
[~2018-01-26] VITALS: Ht 165.1 cm; Wt 72.3 kg
[~2018-01-26 15:07] MED LIST changes: -LNX125 PO
[2018-01-26] MEDS ORDERED: SODIUM CHLORIDE 0.9% 1000ML 1,000 ML IV STA (15:29)
[2018-01-26 15:38] LABS: BASO % 0.6 %; BASO ABS # 0.04 K/uL (0-0.2); EOS % 2.4 %; EOS ABS # 0.16 K/uL (0-0.5); HEMOGLOBIN 15.3 g/dL (12.0-16.0); IG# 0.01 K/uL (0.00-0.02); LYMPH % 33.8 %; LYMPH ABS # 2.21 K/uL (1.2-3.4); MEAN CELL VOLUME 85.1 fL (80-100); MEAN CORPUSCULAR HEMOGLOBIN 30.3 pg (25-34); MEAN CORPUSCULAR HGB CONC 35.6 g/dl (32-36); MEAN PLATELET VOLUME 9.1 fL (7.4-10.4); MONO % 7.6 %; NEUT % 55.4 %; NEUT ABS # 3.62 K/uL (1.4-6.5); PLATELET COUNT 212 K/uL (130-400); RED CELL DISTRIBUTION WIDTH CV 13.8 % (11.5-14.5); RED CELL DISTRIBUTION WIDTH SD 42.3 fL (36.4-46.3); WHITE BLOOD COUNT 6.54 K/uL (4.8-10.8)
[2018-01-26 15:49] LABS: INR 1.1 (0.9-1.1); PTT PATIENT 28.5 SECONDS (21.0-31.0)
--- NOTE | 2018-01-26 15:58 | DIAGNOSTIC IMAGING REPORT ---
CHEST ONE VIEW PORTABLE HISTORY: 82 years-old Female EVALUATE WEAKNESS acute weakness with syncope COMPARISON: Chest radiograph 12/27/2013 TECHNIQUE: Portable AP view of the chest FINDINGS: Cardiac silhouette is mildly enlarged. Dense calcifications of the mitral annulus. No pneumothorax, large pleural effusion or overt pulmonary edema. Subsegmental bibasilar opacities are noted. Surgical clips are seen about the left axilla. Degenerative changes of the shoulders and spine. IMPRESSION: 1. Cardiomegaly without overt pulmonary edema. 2. Subsegmental bibasilar opacities favor atelectasis. The above report was generated using voice recognition software. It may contain grammatical, syntax or spelling errors. Electronically signed by: Alex Vázquez M.D. 01/26/2018 3:56 PM Dictated Date/Time: 01/26/2018 3:55 PM
[2018-01-26 16:03] LABS: BLOOD UREA NITROGEN 11 mg/dl (7-18); CREATININE 0.83 mg/dl (0.60-1.20); GLUCOSE 119 mg/dl (70-99)
[2018-01-26 16:04] LABS: ALBUMIN 3.5 gm/dl (3.4-5.0); ALT/SGPT 34 U/L (12-78); AST/SGOT 20 U/L (15-37); CARBON DIOXIDE 25 mmol/L (21-32); POTASSIUM 3.5 mmol/L (3.5-5.1); SODIUM 140 mmol/L (136-145)
[2018-01-26] MEDS ORDERED: ACETAMINOPHEN 500 MG TAB PO STA (16:11)
[2018-01-26 16:14] LABS: ALKALINE PHOSPHATASE 50 U/L (45-117); CKMB 1.6 ng/ml (0.5-3.6)
[2018-01-26] MEDS ORDERED: LNX125 PO (16:16)
--- NOTE | 2018-01-26 16:51 | DIAGNOSTIC IMAGING REPORT ---
HEAD WITHOUT CONTRAST (CT) CLINICAL HISTORY: 82 years-old Female with syncope. Acute syncope TECHNIQUE: Multiple axial CT images of the head were obtained without contrast. A dose lowering technique was utilized adhering to the principles of ALARA. CT DOSE: 614.27 mGy.cm COMPARISON: CT head 08/17/2014. FINDINGS: No acute intracranial hemorrhage, midline shift, intracranial mass, hydrocephalus, territorial ischemia or abnormal extra-axial collection. Moderate atrophy with moderate degree of chronic microvascular ischemic changes. Remote lacunar infarctions of the basal ganglia. Cerebral vascular calcifications are seen at the level of the skull base. The calvarium is intact. The paranasal sinuses, mastoid air cells, and middle ear cavities are clear. IMPRESSION: No acute intracranial abnormality. The above report was generated using voice recognition software. It may contain grammatical, syntax or spelling errors. Electronically signed by: Alex Vázquez M.D. 01/26/2018 4:50 PM Dictated Date/Time: 01/26/2018 4:46 PM
--- NOTE | 2018-01-26 21:14 | History and Physical ---
History & Physical Date & Time of Service: January 26, 2018 at 21:01 Chief Complaint: Syncope Primary Care Physician: No Doctor, Assigned History of Present Illness Source: patient Patient is a pleasant 82yo C female with history of PAF on Digoxin, Metoprolol and Xarelto presenting s/p syncopal event. Patient states that she was shopping in the [employer] this afternoon around 1400 when she started to feel ill. She wanted to go home to rest, however she passed out. She states that she bumped her head on the cart. She lost consciousness for only a few seconds. She denies CP, palpitations or visual loss, numbness or weakness preceding or following the event. Denies seizure activity or incontinence. She has never experienced this before. ER Course: Tylenol, NSS x 1 liter Past Medical/Surgical History Medical Problems: 1. Atrial fibrillation 2. BPV 3. HTN 4. HLP 5. History of GI bleed 6. Anxiety 7. Hypothyroidism 8. PVCs 9. Syncope Surgical Problems: (1) History of carpal tunnel release (2) History of cholecystectomy (3) History of lumpectomy (4) S/P total hysterectomy and bilateral salpingo-oophorectomy (5) Cholecystectomy 6. Bilateral knee replacement Family History Cancer Diabetes mellitus Heart disease Lung disease Social History Smoking Status: Never Smoker Alcohol Use: none Drug Use: none Marital Status: Housing status: lives alone Occupational Status: retired Immunizations History of Influenza Vaccine: Yes Influenza Vaccine Date: May 30, 2012 History of Tetanus Vaccine?: Unknown History of Pneumococcal: Yes History of Hepatitis B Vaccine: Unknown Allergies Coded Allergies: No Known Allergies (Verified , 01/26/18) Home Medications Scheduled Digoxin (Digoxin), 0.125 MG PO Q2D Levothyroxine Sodium (Levothyroxine Sodium), 100 MCG PO QAM Metoprolol Succinate (Toprol Xl), 50 MG PO BID Multiple Vitamin (Multivitamin), 1 TAB PO QAM Omeprazole (Prilosec), 20 MG PO BID Rivaroxaban (Xarelto), 20 MG PO QPM Simvastatin (Zocor), 10 MG PO HS Zolpidem Tartrate (Zolpidem Tartrate), 10 MG PO HS Scheduled PRN Metoprolol Tartrate (Lopressor), 50 MG PO for palpitatons Review of Systems Constitutional: + fatigue, No fever, No chills, No weight loss, No weakness Eyes: No worsening of vision, No diplopia ENT: + hearing loss, No sore throat, No trouble swallowing Respiratory: No cough, No sputum, No shortness of breath, No dyspnea on exertion Cardiovascular: No chest pain, No orthopnea, No palpitations Abdomen: No pain, No nausea, No vomiting, No diarrhea Musculoskeletal: No joint pain, No muscle pain Genitourinary - Female: No dysuria, No urinary frequency, No urinary urgency Neurologic: No memory loss, No paralysis, No weakness Endocrine: + fatigue Hematologic / Lymphatic: No abnormal bleeding/bruising Integumentary: No rash, No itch Physical Exam Vital Signs Date Time Temp Pulse Resp B/P (MAP) Pulse Ox O2 Delivery O2 Flow Rate FiO2 01/26/18 20:00 67 19 133/76 96 Room Air 01/26/18 19:16 66 17 136/80 97 Room Air 01/26/18 18:24 125/80 01/26/18 18:00 67 17 94 Room Air 01/26/18 17:45 65 18 122/70 98 Room Air 01/26/18 17:11 64 18 122/70 95 Room Air 01/26/18 15:52 70 113/71 98 Room Air 72 113/71 72 121/67 01/26/18 15:24 72 01/26/18 15:20 36.6 73 24 125/70 94 Room Air 01/26/18 15:14 94 Room Air General Appearance: WD/WN, no apparent distress Head: normocephalic, atraumatic Eyes: normal inspection, PERRL, EOMI, sclerae normal ENT: normal ENT inspection, hearing grossly normal, pharynx normal Neck: supple, no adenopathy, thyroid normal, no JVD, no carotid bruits, trachea midline Respiratory/Chest: chest non-tender, lungs clear, normal breath sounds, no respiratory distress, no accessory muscle use Cardiovascular: regular rate, rhythm (with ectopy), no edema, no gallop, no JVD , no murmur (2/6 MAUREEN at apex), normal peripheral pulses Abdomen/GI: normal bowel sounds, non tender, soft, no organomegaly Extremities/Musculoskelatal: normal inspection, no calf tenderness, normal capillary refill, no pedal edema Skin: normal color, warm/dry, no rash Diagnostics Laboratory Results Results Past 24 Hours Test 01/26/18 14:55 01/26/18 19:15 Range/Units White Blood Count 6.54 4.8-10.8 K/uL Red Blood Count 5.05 4.2-5.4 M/uL Hemoglobin 15.3 12.0-16.0 g/dL Hematocrit 43.0 37-47 % Mean Corpuscular Volume 85.1 80-100 fL Mean Corpuscular Hemoglobin 30.3 25-34 pg Mean Corpuscular Hemoglobin Concent 35.6 32-36 g/dl Platelet Count 212 130-400 K/uL Mean Platelet Volume 9.1 7.4-10.4 fL Neutrophils (%) (Auto) 55.4 % Lymphocytes (%) (Auto) 33.8 % Monocytes (%) (Auto) 7.6 % Eosinophils (%) (Auto) 2.4 % Basophils (%) (Auto) 0.6 % Neutrophils # (Auto) 3.62 1.4-6.5 K/uL Lymphocytes # (Auto) 2.21 1.2-3.4 K/uL Monocytes # (Auto) 0.50 0.11-0.59 K/uL Eosinophils # (Auto) 0.16 0-0.5 K/uL Basophils # (Auto) 0.04 0-0.2 K/uL RDW Standard Deviation 42.3 36.4-46.3 fL RDW Coefficient of Variation 13.8 11.5-14.5 % Immature Granulocyte % (Auto) 0.2 % Immature Granulocyte # (Auto) 0.01 0.00-0.02 K/uL Prothrombin Time 12.0 9.0-12.0 SECONDS Prothromb Time International Ratio 1.1 0.9-1.1 Activated Partial Thromboplast Time 28.5 21.0-31.0 SECONDS Partial Thromboplastin Ratio 1.1 Sodium Level 140 136-145 mmol/L Potassium Level 3.5 3.5-5.1 mmol/L Chloride Level 106 98-107 mmol/L Carbon Dioxide Level 25 21-32 mmol/L Anion Gap 9.0 3-11 mmol/L Blood Urea Nitrogen 11 7-18 mg/dl Creatinine 0.83 0.60-1.20 mg/dl Est Creatinine Clear Calc Drug Dose 51.0 ml/min Estimated GFR () 75.1 Estimated GFR (Non- 64.8 BUN/Creatinine Ratio 12.7 10-20 Random Glucose 119 70-99 mg/dl Calcium Level 9.0 8.5-10.1 mg/dl Magnesium Level 1.8 1.8-2.4 mg/dl Total Bilirubin 1.0 0.2-1 mg/dl Direct Bilirubin 0.2 0-0.2 mg/dl Aspartate Amino Transf (AST/SGOT) 20 15-37 U/L Alanine Aminotransferase (ALT/SGPT) 34 12-78 U/L Alkaline Phosphatase 50 45-117 U/L Total Creatine Kinase 37 26-192 U/L Creatine Kinase MB 1.6 0.5-3.6 ng/ml Creatine Kinase MB Ratio 4.3 0-3.0 Troponin I < 0.015 0-0.045 ng/ml Total Protein 7.0 6.4-8.2 gm/dl Albumin 3.5 3.4-5.0 gm/dl Thyroid Stimulating Hormone (TSH) 2.290 0.300-4.500 uIu/ml Urine Color DK YELLOW Urine Appearance CLEAR CLEAR Urine pH 5.5 4.5-7.5 Urine Specific [place] 1.029 1.000-1.030 Urine Protein NEG NEG Urine Glucose (UA) NEG NEG Urine Ketones TRACE NEG Urine Occult Blood 1+ NEG Urine Nitrite NEG NEG Urine Bilirubin NEG NEG Urine Urobilinogen NEG NEG Urine Leukocyte Esterase SMALL NEG Urine WBC (Auto) 5-10 0-5 /hpf Urine RBC (Auto) 5-10 0-4 /hpf Urine Hyaline Casts (Auto) 10-30 0-5 /lpf Urine Epithelial Cells (Auto) 20-30 0-5 /lpf Urine Bacteria (Auto) NEG NEG Urine Crystals CALCIUM OXALATE NONE PRSENT Urine Pathogenic Casts 0-3 GRANULAR CASTS 0 /lpf Diagnostic Radiology HEAD WITHOUT CONTRAST (CT) CLINICAL HISTORY: 82 years-old Female with syncope. Acute syncope TECHNIQUE: Multiple axial CT images of the head were obtained without contrast. A dose lowering technique was utilized adhering to the principles of ALARA. CT DOSE: 614.27 mGy.cm COMPARISON: CT head 08/17/2014. FINDINGS: No acute intracranial hemorrhage, midline shift, intracranial mass, hydrocephalus, territorial ischemia or abnormal extra-axial collection. Moderate atrophy with moderate degree of chronic microvascular ischemic changes. Remote lacunar infarctions of the basal ganglia. Cerebral vascular calcifications are seen at the level of the skull base. The calvarium is intact. The paranasal sinuses, mastoid air cells, and middle ear cavities are clear. IMPRESSION: No acute intracranial abnormality. CHEST ONE VIEW PORTABLE HISTORY: 82 years-old Female EVALUATE WEAKNESS acute weakness with syncope COMPARISON: Chest radiograph 12/27/2013 TECHNIQUE: Portable AP view of the chest FINDINGS: Cardiac silhouette is mildly enlarged. Dense calcifications of the mitral annulus. No pneumothorax, large pleural effusion or overt pulmonary edema. Subsegmental bibasilar opacities are noted. Surgical clips are seen about the left axilla. Degenerative changes of the shoulders and spine. IMPRESSION: 1. Cardiomegaly without overt pulmonary edema. 2. Subsegmental bibasilar opacities favor atelectasis. The above report was generated using voice recognition software. It may contain grammatical, syntax or spelling errors. EKG Normal sinus rhythm Normal ECG When compared with ECG of 17-AUG-2014 09:52, No significant change Confirmed by LIVIA LEÓN ([id number]) on 01/26/2018 4:44:11 PM Impression Assessment and Plan 82yo C female with history of PAF on anticoagulation therapy presenting s/p syncopal event. 1. Syncope - workup thus far negative, patient is in NSR -Admit to telemetry to monitor cardiac rhythm - Check 2D echocardiogram -last in 2013 -Check orthostatic VS -Trend cardiac enzymes 2. Atrial fibrillation - patient presently in NSR, on Xarelto anticoagulation. -Continue Digoxin, check level -Continue Toprol XL -Continue Xarelto -Patient is known to Dr. Ritchie, will consult cardiology 3. Hypothyroid - stable -check TSH -Continue Synthroid 4. Hyperlipidemia - stable -Continue Zocor 5. GERD - stable -Continue Prilosec 6. F/E/N - NSS at 75ml/hr, electrolytes WNL, continue to monitor and replete as needed, AHA diet as tolerated 7. PPx - patient on full dose anticoagulation with Xarelto for atrial fibrillation 8. Code - DNR per discussion with patient 9. Dispo - admit to telemetry Resuscitation Status DNR VTE Prophylaxis Will order VTE Prophylaxis: Yes
[2018-01-26 21:25] VITALS: O2SAT 95
[2018-01-26 21:38] VITALS: BP 154/79; PULSE 67; TEMP 36.4; Ht 165.1 cm; Wt 72.3 kg
--- NOTE | 2018-01-26 23:24 | EMERGENCY ROOM VISIT NOTE ---
History Report prepared by Solomon: Shahid Sesay Under the Supervision of: Dr. Arvin Chaudhary M.D. First contact with patient: 15:22 Chief Complaint: SYNCOPE Stated Complaint: SYNCOPE History of Present Illness The patient is an 82 year old female who presents to the Emergency Room with complaints of a syncopal episode that occurred earlier this afternoon. She states that she had been extremely tired recently. The patient says that she had a blood test 4 days ago which revealed a urine infection. She notes that she was having a normal day today, and was out doing errands. She notes that she did not feel sick. The patient then went to a store and was looking at gift bags. At that time, she noted that she felt tired and wanted to take a nap. The patient says that she had an "odd feeling", and then the next thing she remembers was being on the ground. She adds that she may have hit her head on the shopping cart, but did not hit it on the floor. However, a bystander noted that the patient hit her head hard. The patient says that she does not feel like she hit her head hard. The patient states that she had a normal lunch before the episode. She adds that she woke up last night with a headache and was in atrial fibrillation for a brief time. She takes Xarelto for that. The patient notes that currently her head feels full. Pt denies visual changes, neck pain, chest pain, breathing difficulties, nausea, vomiting, abdominal pain , back pain, extremity pain, numbness, open wounds, active bleeding, or other complaints. Source of History: patient Onset: Earlier this afternoon Position: other (global) Symptom Intensity: bystander notes patient hit head hard Quality: other (syncope) Timing: other (episode) Associated Symptoms: + LOC, + headache (last night), + fatigue Note: No other associated symptoms noted. Review of Systems See HPI for pertinent positives and negatives. A total of ten systems were reviewed and were otherwise negative. Past Medical & Surgical Medical Problems: (1) Anxiety (2) Atrial fibrillation (3) Carcinoma of left breast (4) Heart disease (5) History of breast cancer (6) History of GI bleed (7) HTN (hypertension) (8) Hyperlipidemia (9) Hypertension (10) Hypothyroidism (11) Hypothyroidism (12) PVCs (13) SVT (supraventricular tachycardia) (14) Syncope Surgical Problems: (1) History of carpal tunnel release (2) History of cholecystectomy (3) History of lumpectomy (4) S/P total hysterectomy and bilateral salpingo-oophorectomy Family History Cancer Diabetes mellitus Heart disease Lung disease Social History Smoking Status: Never Smoker Drug Use: none Marital Status: Housing Status: lives alone Occupation Status: retired Current/Historical Medications Scheduled Digoxin (Digoxin), 0.125 MG PO Q2D Levothyroxine Sodium (Levothyroxine Sodium), 100 MCG PO QAM Metoprolol Succinate (Toprol Xl), 50 MG PO BID Multiple Vitamin (Multivitamin), 1 TAB PO QAM Omeprazole (Prilosec), 20 MG PO BID Rivaroxaban (Xarelto), 20 MG PO QPM Simvastatin (Zocor), 10 MG PO HS Zolpidem Tartrate (Zolpidem Tartrate), 10 MG PO HS Scheduled PRN Metoprolol Tartrate (Lopressor), 50 MG PO for palpitatons Allergies Coded Allergies: No Known Allergies (Verified , 01/26/18) Physical Exam Vital Signs Date Time Temp Pulse Resp B/P (MAP) Pulse Ox O2 Delivery O2 Flow Rate FiO2 01/26/18 20:00 67 19 133/76 96 Room Air 01/26/18 19:16 66 17 136/80 97 Room Air 01/26/18 18:24 125/80 01/26/18 18:00 67 17 94 Room Air 01/26/18 17:45 65 18 122/70 98 Room Air 01/26/18 17:11 64 18 122/70 95 Room Air 01/26/18 15:52 70 113/71 98 Room Air 72 113/71 72 121/67 01/26/18 15:24 72 01/26/18 15:20 36.6 73 24 125/70 94 Room Air 01/26/18 15:14 94 Room Air Physical Exam GENERAL: Awake, alert, well-appearing, in no distress HENT: Normocephalic, atraumatic. Oropharynx unremarkable. EYES: Normal conjunctiva. Sclera non-icteric. NECK: Supple. No nuchal rigidity. FROM. No masses. RESPIRATORY: Clear to auscultation. No wheezes. No rales. Normal respiratory effort. CARDIAC: Normal rate. Normal rhythm. No murmurs. No rubs. Extremities warm and well perfused. Pulses equal. No JVD. GI: Soft, non-distended. No tenderness to palpation. No rebound or guarding. No masses. RECTAL: Deferred. MUSCULOSKELETAL: Atraumatic. Chest examination reveals no tenderness. The back is symmetrical on inspection without obvious abnormality. There is no CVA tenderness to palpation. No joint edema. LOWER EXTREMITIES: Calves are equal size bilaterally and non-tender. No edema. No discoloration. NEURO: Normal sensorium. No sensory or motor deficits noted. SKIN: No rash or jaundice noted. Medical Decision & Procedures ER Provider Diagnostic Interpretation: Radiology results as stated below per my review and radiologist interpretation: CHEST ONE VIEW PORTABLE HISTORY: 82 years-old Female EVALUATE WEAKNESS acute weakness with syncope COMPARISON: Chest radiograph 12/27/2013 TECHNIQUE: Portable AP view of the chest FINDINGS: Cardiac silhouette is mildly enlarged. Dense calcifications of the mitral annulus. No pneumothorax, large pleural effusion or overt pulmonary edema. Subsegmental bibasilar opacities are noted. Surgical clips are seen about the left axilla. Degenerative changes of the shoulders and spine. IMPRESSION: 1. Cardiomegaly without overt pulmonary edema. 2. Subsegmental bibasilar opacities favor atelectasis. The above report was generated using voice recognition software. It may contain grammatical, syntax or spelling errors. Electronically signed by: Alex Vázquez M.D. 01/26/2018 3:56 PM Dictated Date/Time: 01/26/2018 3:55 PM HEAD WITHOUT CONTRAST (CT) CLINICAL HISTORY: 82 years-old Female with syncope. Acute syncope TECHNIQUE: Multiple axial CT images of the head were obtained without contrast. A dose lowering technique was utilized adhering to the principles of ALARA. CT DOSE: 614.27 mGy.cm COMPARISON: CT head 08/17/2014. FINDINGS: No acute intracranial hemorrhage, midline shift, intracranial mass, hydrocephalus, territorial ischemia or abnormal extra-axial collection. Moderate atrophy with moderate degree of chronic microvascular ischemic changes. Remote lacunar infarctions of the basal ganglia. Cerebral vascular calcifications are seen at the level of the skull base. The calvarium is intact. The paranasal sinuses, mastoid air cells, and middle ear cavities are clear. IMPRESSION: No acute intracranial abnormality. The above report was generated using voice recognition software. It may contain grammatical, syntax or spelling errors. Electronically signed by: Alex Vázquez M.D. 01/26/2018 4:50 PM Dictated Date/Time: 01/26/2018 4:46 PM Laboratory Results 01/26/18 14:55 Red Blood Count 5.05, Mean Corpuscular Volume 85.1, Mean Corpuscular Hemoglobin 30.3, Mean Corpuscular Hemoglobin Concent 35.6, Mean Platelet Volume 9.1, Neutrophils (%) (Auto) 55.4, Lymphocytes (%) (Auto) 33.8, Monocytes (%) (Auto) 7.6, Eosinophils (%) (Auto) 2.4, Basophils (%) (Auto) 0.6, Neutrophils # (Auto) 3.62, Lymphocytes # (Auto) 2.21, Monocytes # (Auto) 0.50, Eosinophils # (Auto) 0.16, Basophils # (Auto) 0.04 01/26/18 14:55 Test 01/26/18 14:55 01/26/18 19:15 White Blood Count 6.54 K/uL (4.8-10.8) Red Blood Count 5.05 M/uL (4.2-5.4) Hemoglobin 15.3 g/dL (12.0-16.0) Hematocrit 43.0 % (37-47) Mean Corpuscular Volume 85.1 fL (80-100) Mean Corpuscular Hemoglobin 30.3 pg (25-34) Mean Corpuscular Hemoglobin Concent 35.6 g/dl (32-36) Platelet Count 212 K/uL (130-400) Mean Platelet Volume 9.1 fL (7.4-10.4) Neutrophils (%) (Auto) 55.4 % Lymphocytes (%) (Auto) 33.8 % Monocytes (%) (Auto) 7.6 % Eosinophils (%) (Auto) 2.4 % Basophils (%) (Auto) 0.6 % Neutrophils # (Auto) 3.62 K/uL (1.4-6.5) Lymphocytes # (Auto) 2.21 K/uL (1.2-3.4) Monocytes # (Auto) 0.50 K/uL (0.11-0.59) Eosinophils # (Auto) 0.16 K/uL (0-0.5) Basophils # (Auto) 0.04 K/uL (0-0.2) RDW Standard Deviation 42.3 fL (36.4-46.3) RDW Coefficient of Variation 13.8 % (11.5-14.5) Immature Granulocyte % (Auto) 0.2 % Immature Granulocyte # (Auto) 0.01 K/uL (0.00-0.02) Prothrombin Time 12.0 SECONDS (9.0-12.0) Prothromb Time International Ratio 1.1 (0.9-1.1) Activated Partial Thromboplast Time 28.5 SECONDS (21.0-31.0) Partial Thromboplastin Ratio 1.1 Anion Gap 9.0 mmol/L (3-11) Est Creatinine Clear Calc Drug Dose 51.0 ml/min Estimated GFR () 75.1 Estimated GFR (Non- 64.8 BUN/Creatinine Ratio 12.7 (10-20) Calcium Level 9.0 mg/dl (8.5-10.1) Magnesium Level 1.8 mg/dl (1.8-2.4) Total Bilirubin 1.0 mg/dl (0.2-1) Direct Bilirubin 0.2 mg/dl (0-0.2) Aspartate Amino Transf (AST/SGOT) 20 U/L (15-37) Alanine Aminotransferase (ALT/SGPT) 34 U/L (12-78) Alkaline Phosphatase 50 U/L (45-117) Total Creatine Kinase 37 U/L (26-192) Creatine Kinase MB 1.6 ng/ml (0.5-3.6) Creatine Kinase MB Ratio 4.3 (0-3.0) Total Protein 7.0 gm/dl (6.4-8.2) Albumin 3.5 gm/dl (3.4-5.0) Thyroid Stimulating Hormone (TSH) 2.290 uIu/ml (0.300-4.500) Urine Color DK YELLOW Urine Appearance CLEAR (CLEAR) Urine pH 5.5 (4.5-7.5) Urine Specific [place] 1.029 (1.000-1.030) Urine Protein NEG (NEG) Urine Glucose (UA) NEG (NEG) Urine Ketones TRACE (NEG) Urine Occult Blood 1+ (NEG) Urine Nitrite NEG (NEG) Urine Bilirubin NEG (NEG) Urine Urobilinogen NEG (NEG) Urine Leukocyte Esterase SMALL (NEG) Urine WBC (Auto) 5-10 /hpf (0-5) Urine RBC (Auto) 5-10 /hpf (0-4) Urine Hyaline Casts (Auto) 10-30 /lpf (0-5) Urine Epithelial Cells (Auto) 20-30 /lpf (0-5) Urine Bacteria (Auto) NEG (NEG) Urine Crystals CALCIUM OXALATE (NONE Urine Pathogenic Casts 0-3 GRANULAR CASTS /lpf (0) Laboratory results reviewed by me Medications Administered Medications (Trade) Dose Ordered Sig/Ramon Route Start Time Stop Time Status Last Admin Dose Admin Sodium Chloride 1,000 ml @ 125 mls/hr Q8H STAT IV 01/26/18 15:29 01/26/18 21:42 DC 01/26/18 15:29 125 MLS/HR Acetaminophen (Tylenol Tab) 1,000 mg NOW STAT PO 01/26/18 16:11 01/26/18 16:12 DC 01/26/18 16:23 1,000 MG ECG Per My Interpretation Indication: syncope Rate (beats per minute): 75 Rhythm: normal sinus Findings: no acute ischemic change, no ectopy ED Course 1529: NSS 1000 ml @ 125 mls/hr IV. 1535: The patient was evaluated in room C3. A complete history and physical exam was performed. 1611: Tylenol Tab 1000 mg PO. 1734: I reevaluated the patient and she will get an ambulatory trial. 1812: The ambulatory trial went well without any issues. 1817: Upon reexamination, the patient was resting. I discussed the test results and treatment plan with her. I specifically discussed the options of evaluation in the hospital as well as outpatient. She is very concerned about the episode as it is a new event for her and she had no symptoms leading up to it, so she is going to prefer workup in the hospital. The patient will be evaluated for further management. 1843: I discussed the patient with Dr. Tye Ray case hardener - she will evaluate the patient for further treatment. Medical Decision Triage Nursing notes reviewed and agree them. Additional history obtained from the family. The patient's history was concerning for syncope. Differential diagnosis: Etiologies such as infection, hypoglycemia, electrolyte abnormalities, cardiac sources, intracerebral event, toxicologic, neurologic, as well as others were entertained. Physical examination: As above. ER treatment provided: IV hydration with normal saline On reassessment the patient felt better. Diagnostics interpretation by me: ECG: No acute ischemic change or dysrhythmia. The labs revealed an unremarkable CBC and chemistry panel. Imaging studies: X-ray and CT scan as above. The patient had abrupt onset of syncope. This is concerning for cardiogenic etiologies. I discussed treatment options and the patient does not feel comfortable going home. Consultation: A consultation was placed with the hospitalist. The case was discussed and diagnostics were reviewed. The patient was evaluated in the ER for further treatment. Medication Reconcilliation Current Medication List: was personally reviewed by me Blood Pressure Screening Patient's blood pressure: Normal blood pressure Consults Time Called: 1839 Consulting Physician: Dr. Tye Ray case hardener Returned Call: 1842 I discussed the patient with Dr. Tye Ray case hardener - she will evaluate the patient for further treatment. Impression Primary Impression: Syncope Scribe Attestation The scribe's documentation has been prepared under my direction and personally reviewed by me in its entirety. I confirm that the note above accurately reflects all work, treatment, procedures, and medical decision making performed by me. Departure Information Dispostion Being Evaluated By Hospitalist Referrals No Doctor, Assigned (PCP) Patient Instructions My [facility] Problem Qualifiers Primary Impression: Syncope Syncope type: unspecified Qualified Codes: R55 - Syncope and collapse
[2018-01-26] MEDS: ZOLPIDEM TARTRATE 10 MG TAB PO SCH (23:32)
[2018-01-26] MEDS: METOPROLOL SUCC 50MG EXT REL TAB PO SCH (23:33)
[2018-01-26] MEDS: SIMVASTATIN 10 MG TAB PO SCH (23:33)
[2018-01-26] MEDS: PANTOprazole SOD 40 MG TAB PO SCH (23:34)
[2018-01-26 23:38] VITALS: BP 153/80; PULSE 67
[2018-01-26] MEDS: RIVAROXABAN 10 MG TAB PO SCH (23:42)
[2018-01-26 23:46] VITALS: BP_SYST 148; BP_SYST 149; BP_DIAS 88; BP_DIAS 91; PULSE 70; PULSE 71; TEMP 36.3; O2SAT 92
[2018-01-27 04:00] VITALS: BP 133/80; PULSE 65; TEMP 36.5; O2SAT 95
[2018-01-27 05:56] LABS: HEMATOCRIT 39.5 % (37-47); HEMOGLOBIN 13.4 g/dL (12.0-16.0); MEAN CELL VOLUME 85.9 fL (80-100); MEAN CORPUSCULAR HEMOGLOBIN 29.1 pg (25-34); MEAN CORPUSCULAR HGB CONC 33.9 g/dl (32-36); MEAN PLATELET VOLUME 8.6 fL (7.4-10.4); PLATELET COUNT 161 K/uL (130-400); RED CELL DISTRIBUTION WIDTH CV 13.8 % (11.5-14.5); RED CELL DISTRIBUTION WIDTH SD 43.1 fL (36.4-46.3); WHITE BLOOD COUNT 5.95 K/uL (4.8-10.8)
[2018-01-27] MEDS: LEVOTHYROXINE 100 MCG TAB PO SCH (06:11)
[2018-01-27 06:27] LABS: BLOOD UREA NITROGEN 9 mg/dl (7-18); CALCIUM 8.7 mg/dl (8.5-10.1); CARBON DIOXIDE 29 mmol/L (21-32); CREATININE 0.65 mg/dl (0.60-1.20); GLUCOSE 92 mg/dl (70-99); POTASSIUM 3.4 mmol/L (3.5-5.1); SODIUM 141 mmol/L (136-145)
[2018-01-27] MEDS ORDERED: POTASSIUM CHLORIDE 10 MEQ TABCR PO STA (07:44)
[2018-01-27 08:07] VITALS: BP 139/77; PULSE 67; TEMP 36.8; O2SAT 96
[2018-01-27] MEDS: PANTOprazole SOD 40 MG TAB PO SCH ×2 (08:15→20:43)
[2018-01-27] MEDS: METOPROLOL SUCC 50MG EXT REL TAB PO SCH ×2 (08:15→20:43)
[2018-01-27] MEDS: MULTIVITAMIN TAB PO SCH (08:16)
--- NOTE | 2018-01-27 09:50 | ECHOCARDIOGRAM REPORT ---
*NOTICE TO RECEIVING REPUBLICAN AGENCY This information is strictly Confidential and protected under [place] law. [place] law prohibits you from making any further disclosure of this information unless further disclosure is expressly permitted by the written consent of the person to whom it pertains or is authorized by law. A general authorization for the release of medical or other information is not sufficient for this purpose. Hospital accepts no responsibility if the information is made available to any other person, INCLUDING THE PATIENT. Interpretation Summary * Name: LUPILLO BELCHER Study Date: 01/27/2018 08:35 AM BP: 139/77 mmHg * Patient Location: [facility]\S\[id number]\S\1 HR: 67 * : 1935 (M/d/yyyy) Gender: Female Height: 65 in * Age: 82 yrs Ethnicity: [place] Weight: 160 lb * Ordering Physician: Gosia Desouza * Referring Physician: No Doctor, Assigned * Performed By: Gosia Castellon RDCS * * Reason For Study: SYNCOPE * BSA: 1.8 m2 * -- Conclusions -- * There is moderate concentric left ventricular hypertrophy. * Left ventricular systolic function is normal. * Diastolic dysfunction, Grade II, consistent with elevated left atrial pressure. * The left atrium is severely dilated. * Right ventricular systolic pressure is elevated at 30-40mmHg. * Compared to an echocardiogram from 2014, there has been some increased LVH and worsening diastolic function. Procedure Details * A complete two-dimensional transthoracic echocardiogram was performed (2D, M-mode, Doppler and color flow Doppler). Left Ventricle * The left ventricle is grossly normal size. * There is moderate concentric left ventricular hypertrophy. * The basal septum is thickened and angulated consistent with sigmoid septum. * Left ventricular systolic function is normal. * Ejection Fraction = 55-60%. * Diastolic dysfunction, Grade II, consistent with elevated left atrial pressure. * The left ventricular wall motion is normal. Right Ventricle * The right ventricle is normal in size and function. Atria * The left atrium is severely dilated. * The right atrium is borderline dilated. Mitral Valve * Leaflets are somewhat thickened and there is severe posterior annular calcification. When compared directly to an echocardiogram in 2014, there has been slight progression. * There is no mitral valve stenosis. * There is trace mitral regurgitation. Tricuspid Valve * The tricuspid valve is not well visualized, but is grossly normal. * There is mild tricuspid regurgitation. * Right ventricular systolic pressure is elevated at 30-40mmHg. Aortic Valve * The aortic valve is normal in structure and function. * The aortic valve is trileaflet. * No hemodynamically significant valvular aortic stenosis. * There is no significant aortic regurgitation. Pulmonic Valve * The pulmonic valve is not well visualized. Great Vessels * The aortic root is normal size. Pericardium/Pleural * There is no pericardial effusion. MMode 2D Measurements and Calculations IVSd 1.8 cm IVSs 1.8 cm LVIDd 3.2 cm LVIDs 2.2 cm LVPWd 1.9 cm LVPWs 1.8 cm IVS/LVPW 0.94 FS 32.3 % EDV(Teich) 40.8 ml ESV(Teich) 15.5 ml EF(Teich) 62.0 % EDV(cubed) 32.6 ml ESV(cubed) 10.1 ml EF(cubed) 69.0 % % IVS thick 2.5 % % LVPW thick -4.53 % LV mass(C)d 247.5 grams LV mass(C)dI 137.6 grams/m\S\2 LV mass(C)s 157.1 grams LV mass(C)sI 87.3 grams/m\S\2 SV(Teich) 25.3 ml SI(Teich) 14.1 ml/m\S\2 SV(cubed) 22.5 ml SI(cubed) 12.5 ml/m\S\2 Ao root diam 3.0 cm Ao root area 6.9 cm\S\2 LVAd ap4 24.9 cm\S\2 LVLd ap4 7.3 cm EDV(MOD-sp4) 69.5 ml EDV(sp4-el) 71.7 ml LVAs ap4 14.9 cm\S\2 LVLs ap4 6.9 cm ESV(MOD-sp4) 28.7 ml ESV(sp4-el) 27.4 ml EF(MOD-sp4) 58.7 % EF(sp4-el) 61.8 % SV(MOD-sp4) 40.8 ml SI(MOD-sp4) 22.7 ml/m\S\2 SV(sp4-el) 44.3 ml SI(sp4-el) 24.6 ml/m\S\2 Doppler Measurements and Calculations MV E max marcello 128.9 cm/sec MV A max marcello 96.0 cm/sec MV E/A 1.3 MV dec time 0.29 sec Ao V2 max 134.1 cm/sec Ao max PG 7.2 mmHg Ao max PG (full) 4.0 mmHg LV V1 max PG 3.2 mmHg LV V1 max 89.5 cm/sec TR max marcello 291.2 cm/sec
--- NOTE | 2018-01-27 11:15 | Cardiology Consultation ---
Cardiology Consultation Date of Consultation: January 27, 2018. Requesting Physician: Milagro Reason for Consultation: syncope Pt evaluation today including: conversation w/ patient, physical exam, chart review, lab review, review of studies, review of inpatient medication list, conversation w/ attending History of Present Illness Patient is an 82-year-old woman with a history of atrial fibrillation who experienced an episode of syncope yesterday. Patient states that she has been feeling quite tired and fatigued for several weeks. Yesterday she had lunch with friends and then proceeded to a retail store for some errands. She recalls feeling particularly tired and weak at that time and did suffer an episode of syncope. She recalls holding on to her cart and falling to the ground. 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 She did not report any other prodrome. She did not have any nausea or diaphoresis. She did not recall any sense of palpitation. After the episode she felt quite well but was urged by the staff at the store to have an evaluation at the hospital. Outside of the prominent fatigue recently the patient has been feeling well. She does occasionally have episodes of atrial fibrillation. She feels that she had an episode 2 nights ago. This is generally manifest by sense of dizziness and palpitation. The episodes generally resolve spontaneously. She did not have her typical symptoms prior to her syncopal episode yesterday. Otherwise she generally does not have dizziness or lightheadedness. She cannot recall any other episodes of syncope. She denies significant shortness of breath. She has not had recent episodes of chest discomfort. She does know that she has PVCs but rarely has symptoms associated with this irregularity. She has been trying to eat a high potassium diet as she has been told that her potassium levels have been low recently. At the time of the interview this morning the patient claims to be feeling well. No particular complaints other than some mild fatigue. 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 All Other Systems: Reviewed and Negative Allergies Coded Allergies: No Known Allergies (Verified , 01/26/18) Medications Current Inpatient Medications Medications (Trade) Dose Ordered Sig/Ramon Route Start Time Stop Time Status Last Admin Dose Admin Digoxin (Lanoxin Tab) 0.125 mg Q2D@1600 PO 01/27/18 16:00 02/26/18 15:59 Levothyroxine Sodium (Synthroid Tab) 100 mcg DAILYBB PO 01/27/18 06:30 02/26/18 06:59 01/27/18 06:11 100 MCG Metoprolol Succinate (Toprol Xl Tab) 50 mg BID PO 01/26/18 21:00 02/25/18 20:59 01/27/18 08:15 50 MG Multivitamins (Multivitamin Tab) 1 tab QAM PO 01/27/18 09:00 02/26/18 08:59 01/27/18 08:16 1 TAB Rivaroxaban (Xarelto Tab) 20 mg QDD PO 01/27/18 17:00 02/26/18 17:59 01/26/18 23:42 20 MG Simvastatin (Zocor Tab) 10 mg HS PO 01/26/18 21:00 02/25/18 20:59 01/26/18 23:33 10 MG Zolpidem Tartrate (Ambien Tab) 10 mg HS PO 01/26/18 21:00 02/25/18 20:59 01/26/18 23:32 10 MG Pantoprazole Sodium (Protonix Tab) 40 mg BID PO 01/26/18 21:00 02/25/18 20:59 01/27/18 08:15 40 MG Physical Exam Vital Signs Past 12 Hours Date Time Temp Pulse Resp B/P (MAP) Pulse Ox O2 Delivery O2 Flow Rate FiO2 01/27/18 09:35 Room Air 01/27/18 08:07 36.8 67 20 139/77 (97) 96 Room Air 01/27/18 04:00 Room Air 01/27/18 04:00 36.5 65 18 133/80 (97) 95 Room Air 01/27/18 00:00 Room Air 01/26/18 23:46 36.3 70 20 148/88 (108) 92 Room Air 71 149/91 (110) 01/26/18 23:38 67 153/80 (104) She is alert and oriented x3. Mood affect appear normal. She answered all questions appropriately. HEENT: Sclerae are anicteric. Pupils are equal and reactive to light and accommodation. Extraocular movements were intact. Neuro: Cranial nerves intact Neck: Examination of the submandibular region did not reveal any significant lymphadenopathy. Carotids are palpable bilaterally and free of bruits on auscultation. There was no evidence of jugular venous distention. The thyroid was not enlarged. Lungs: Lungs are clear to auscultation bilaterally. There are no rales wheezes or rhonchi. She has normal respiratory effort without use of accessory muscles. There is normal pulmonary excursion. Cardiac: The rhythm was regular. S1 and S2 were normal. There are no murmurs on examination. The PMI was not markedly displaced on palpation. Abdomen: The abdomen was soft and nontender. Extremities: Patient has bilateral radial pulses that are equal in intensity. There is no evidence cyanosis or clubbing. There was no evidence of significant peripheral edema bilaterally. Skin: There are no rashes noted on examination today. Data Laboratory Results: Last 24 Hours Test 01/26/18 14:55 01/26/18 19:15 01/26/18 21:52 01/26/18 21:53 White Blood Count 6.54 K/uL Red Blood Count 5.05 M/uL Hemoglobin 15.3 g/dL Hematocrit 43.0 % Mean Corpuscular Volume 85.1 fL Mean Corpuscular Hemoglobin 30.3 pg Mean Corpuscular Hemoglobin Concent 35.6 g/dl Platelet Count 212 K/uL Mean Platelet Volume 9.1 fL Neutrophils (%) (Auto) 55.4 % Lymphocytes (%) (Auto) 33.8 % Monocytes (%) (Auto) 7.6 % Eosinophils (%) (Auto) 2.4 % Basophils (%) (Auto) 0.6 % Neutrophils # (Auto) 3.62 K/uL Lymphocytes # (Auto) 2.21 K/uL Monocytes # (Auto) 0.50 K/uL Eosinophils # (Auto) 0.16 K/uL Basophils # (Auto) 0.04 K/uL RDW Standard Deviation 42.3 fL RDW Coefficient of Variation 13.8 % Immature Granulocyte % (Auto) 0.2 % Immature Granulocyte # (Auto) 0.01 K/uL Prothrombin Time 12.0 SECONDS Prothromb Time International Ratio 1.1 Activated Partial Thromboplast Time 28.5 SECONDS Partial Thromboplastin Ratio 1.1 Sodium Level 140 mmol/L Potassium Level 3.5 mmol/L Chloride Level 106 mmol/L Carbon Dioxide Level 25 mmol/L Anion Gap 9.0 mmol/L Blood Urea Nitrogen 11 mg/dl Creatinine 0.83 mg/dl Est Creatinine Clear Calc Drug Dose 51.0 ml/min Estimated GFR () 75.1 Estimated GFR (Non- 64.8 BUN/Creatinine Ratio 12.7 Random Glucose 119 mg/dl Calcium Level 9.0 mg/dl Magnesium Level 1.8 mg/dl Total Bilirubin 1.0 mg/dl Direct Bilirubin 0.2 mg/dl Aspartate Amino Transf (AST/SGOT) 20 U/L Alanine Aminotransferase (ALT/SGPT) 34 U/L Alkaline Phosphatase 50 U/L Total Creatine Kinase 37 U/L Creatine Kinase MB 1.6 ng/ml Creatine Kinase MB Ratio 4.3 Troponin I < 0.015 ng/ml < 0.015 ng/ml Total Protein 7.0 gm/dl Albumin 3.5 gm/dl Thyroid Stimulating Hormone (TSH) 2.290 uIu/ml Urine Color DK YELLOW Urine Appearance CLEAR Urine pH 5.5 Urine Specific [place] 1.029 Urine Protein NEG Urine Glucose (UA) NEG Urine Ketones TRACE Urine Occult Blood 1+ Urine Nitrite NEG Urine Bilirubin NEG Urine Urobilinogen NEG Urine Leukocyte Esterase SMALL Urine WBC (Auto) 5-10 /hpf Urine RBC (Auto) 5-10 /hpf Urine Hyaline Casts (Auto) 10-30 /lpf Urine Epithelial Cells (Auto) 20-30 /lpf Urine Bacteria (Auto) NEG Urine Crystals CALCIUM OXALATE Urine Pathogenic Casts 0-3 GRANULAR CASTS /lpf Digoxin Level 0.4 ng/ml Test 01/27/18 05:46 White Blood Count 5.95 K/uL Red Blood Count 4.60 M/uL Hemoglobin 13.4 g/dL Hematocrit 39.5 % Mean Corpuscular Volume 85.9 fL Mean Corpuscular Hemoglobin 29.1 pg Mean Corpuscular Hemoglobin Concent 33.9 g/dl RDW Standard Deviation 43.1 fL RDW Coefficient of Variation 13.8 % Platelet Count 161 K/uL Mean Platelet Volume 8.6 fL Sodium Level 141 mmol/L Potassium Level 3.4 mmol/L Chloride Level 106 mmol/L Carbon Dioxide Level 29 mmol/L Anion Gap 6.0 mmol/L Blood Urea Nitrogen 9 mg/dl Creatinine 0.65 mg/dl Est Creatinine Clear Calc Drug Dose 64.4 ml/min Estimated GFR () 94.5 Estimated GFR (Non- 81.5 BUN/Creatinine Ratio 13.9 Random Glucose 92 mg/dl Calcium Level 8.7 mg/dl Troponin I < 0.015 ng/ml Imaging: Chest x-ray was unremarkable. Head CT did not reveal any acute intracranial process or injury EKG: Normal sinus rhythm Telemetry reviewed: Normal sinus rhythm with occasional PVCs and periods of ventricular bigeminy Echocardiogram performed today revealed preserved LV systolic function with some mild mitral regurgitation. Assessment & Plan 1. Syncope: The patient is very little prodrome suggesting this could be related to an arrhythmia. She has had some prominent fatigue recently and this may have played a role in her episode. She did not have symptoms of her typical atrial fibrillation leading up to the event. With her preserved LV systolic function and normal EKG I think she is low risk for malignant causes of syncope. Her electrolytes seemed normal. She has had some symptoms hypokalemia recently and in the setting of digoxin use this could be of concern. However her digoxin level was low as well. Her potassium was relatively normal at the time of admission. I think we can provide some additional monitoring as an outpatient. 2. Atrial fibrillation: This is paroxysmal. The episodes themselves appear to be very well tolerated. Unclear whether she has adequate rate control, but I think we can continue her current medical regimen including her anticoagulation.
[2018-01-27 11:48] VITALS: BP_SYST 128; BP_SYST 129; BP_DIAS 76; BP_DIAS 77; PULSE 65; PULSE 68; TEMP 36.7; O2SAT 95
[2018-01-27] MEDS ORDERED: MEGESTROL ACETATE SUSP 400 MG/10 ML UDC PO ONE (13:30)
--- NOTE | 2018-01-27 14:58 | Hospitalist Progress Note ---
Hospitalist Progress Note Date of Service January 27, 2018. Subjective Pt evaluation today including: conversation w/ patient, physical exam, lab review, review of studies, review of inpatient medication list Voiding: no voiding problems Patient feeling well. Eating and drinking OK. +decreased appetite. Does not recall syncopal event yesterday. Admit to lightheadedness/dizziness prior to LOC. Patient denies any fever, chills, sweats, lightheadedness, dizziness, vision changes, CP, palpitations, edema, SOB, wheezing, cough, abdominal pain, nausea, vomiting, diarrhea, urinary symptoms, melena, numbness/tingling, weakness, muscle/joint pain, anxiety/depression, active bleeding, or new skin discoloration/changes. Medications Current Inpatient Medications Medications (Trade) Dose Ordered Sig/Ramon Route Start Time Stop Time Status Last Admin Dose Admin Digoxin (Lanoxin Tab) 0.125 mg Q2D@1600 PO 01/27/18 16:00 02/26/18 15:59 Levothyroxine Sodium (Synthroid Tab) 100 mcg DAILYBB PO 01/27/18 06:30 02/26/18 06:59 01/27/18 06:11 100 MCG Metoprolol Succinate (Toprol Xl Tab) 50 mg BID PO 01/26/18 21:00 02/25/18 20:59 01/27/18 08:15 50 MG Multivitamins (Multivitamin Tab) 1 tab QAM PO 01/27/18 09:00 02/26/18 08:59 01/27/18 08:16 1 TAB Rivaroxaban (Xarelto Tab) 20 mg QDD PO 01/27/18 17:00 02/26/18 17:59 01/26/18 23:42 20 MG Simvastatin (Zocor Tab) 10 mg HS PO 01/26/18 21:00 02/25/18 20:59 01/26/18 23:33 10 MG Zolpidem Tartrate (Ambien Tab) 10 mg HS PO 01/26/18 21:00 02/25/18 20:59 01/26/18 23:32 10 MG Pantoprazole Sodium (Protonix Tab) 40 mg BID PO 01/26/18 21:00 02/25/18 20:59 01/27/18 08:15 40 MG Megestrol Acetate (Megace Susp) 400 mg QAM PO 01/28/18 09:00 02/27/18 08:59 Objective Vital Signs Date Time Temp Pulse Resp B/P (MAP) Pulse Ox O2 Delivery O2 Flow Rate FiO2 01/27/18 12:06 Room Air 01/27/18 11:48 36.7 68 20 128/77 (94) 95 Room Air 65 129/76 (93) 01/27/18 09:35 Room Air 01/27/18 08:07 36.8 67 20 139/77 (97) 96 Room Air 01/27/18 04:00 Room Air 01/27/18 04:00 36.5 65 18 133/80 (97) 95 Room Air 01/27/18 00:00 Room Air 01/26/18 23:46 36.3 70 20 148/88 (108) 92 Room Air 71 149/91 (110) 01/26/18 23:38 67 153/80 (104) 01/26/18 21:38 36.4 67 12 154/79 Room Air 01/26/18 21:25 67 16 138/83 95 01/26/18 20:00 67 19 133/76 96 Room Air 01/26/18 19:16 66 17 136/80 97 Room Air 01/26/18 18:24 125/80 01/26/18 18:00 67 17 94 Room Air 01/26/18 17:45 65 18 122/70 98 Room Air 01/26/18 17:11 64 18 122/70 95 Room Air 01/26/18 15:52 70 113/71 98 Room Air 72 113/71 72 121/67 01/26/18 15:24 72 01/26/18 15:20 36.6 73 24 125/70 94 Room Air 01/26/18 15:14 94 Room Air Physical Exam General Appearance: no apparent distress Eyes: normal inspection, PERRL ENT: hearing grossly normal Neck: supple Respiratory/Chest: lungs clear, no respiratory distress, no accessory muscle use Cardiovascular: regular rate, rhythm Abdomen: normal bowel sounds, non tender, soft Extremities: no pedal edema, no calf tenderness Neurologic/Psychiatric: alert, normal mood/affect, oriented x 3 Skin: normal color, warm/dry, no rash Laboratory Results Last 24 Hours Test 01/26/18 14:55 01/26/18 19:15 01/26/18 21:52 01/26/18 21:53 White Blood Count 6.54 K/uL Red Blood Count 5.05 M/uL Hemoglobin 15.3 g/dL Hematocrit 43.0 % Mean Corpuscular Volume 85.1 fL Mean Corpuscular Hemoglobin 30.3 pg Mean Corpuscular Hemoglobin Concent 35.6 g/dl Platelet Count 212 K/uL Mean Platelet Volume 9.1 fL Neutrophils (%) (Auto) 55.4 % Lymphocytes (%) (Auto) 33.8 % Monocytes (%) (Auto) 7.6 % Eosinophils (%) (Auto) 2.4 % Basophils (%) (Auto) 0.6 % Neutrophils # (Auto) 3.62 K/uL Lymphocytes # (Auto) 2.21 K/uL Monocytes # (Auto) 0.50 K/uL Eosinophils # (Auto) 0.16 K/uL Basophils # (Auto) 0.04 K/uL RDW Standard Deviation 42.3 fL RDW Coefficient of Variation 13.8 % Immature Granulocyte % (Auto) 0.2 % Immature Granulocyte # (Auto) 0.01 K/uL Prothrombin Time 12.0 SECONDS Prothromb Time International Ratio 1.1 Activated Partial Thromboplast Time 28.5 SECONDS Partial Thromboplastin Ratio 1.1 Sodium Level 140 mmol/L Potassium Level 3.5 mmol/L Chloride Level 106 mmol/L Carbon Dioxide Level 25 mmol/L Anion Gap 9.0 mmol/L Blood Urea Nitrogen 11 mg/dl Creatinine 0.83 mg/dl Est Creatinine Clear Calc Drug Dose 51.0 ml/min Estimated GFR () 75.1 Estimated GFR (Non- 64.8 BUN/Creatinine Ratio 12.7 Random Glucose 119 mg/dl Calcium Level 9.0 mg/dl Magnesium Level 1.8 mg/dl Total Bilirubin 1.0 mg/dl Direct Bilirubin 0.2 mg/dl Aspartate Amino Transf (AST/SGOT) 20 U/L Alanine Aminotransferase (ALT/SGPT) 34 U/L Alkaline Phosphatase 50 U/L Total Creatine Kinase 37 U/L Creatine Kinase MB 1.6 ng/ml Creatine Kinase MB Ratio 4.3 Troponin I < 0.015 ng/ml < 0.015 ng/ml Total Protein 7.0 gm/dl Albumin 3.5 gm/dl Thyroid Stimulating Hormone (TSH) 2.290 uIu/ml Urine Color DK YELLOW Urine Appearance CLEAR Urine pH 5.5 Urine Specific [place] 1.029 Urine Protein NEG Urine Glucose (UA) NEG Urine Ketones TRACE Urine Occult Blood 1+ Urine Nitrite NEG Urine Bilirubin NEG Urine Urobilinogen NEG Urine Leukocyte Esterase SMALL Urine WBC (Auto) 5-10 /hpf Urine RBC (Auto) 5-10 /hpf Urine Hyaline Casts (Auto) 10-30 /lpf Urine Epithelial Cells (Auto) 20-30 /lpf Urine Bacteria (Auto) NEG Urine Crystals CALCIUM OXALATE Urine Pathogenic Casts 0-3 GRANULAR CASTS /lpf Digoxin Level 0.4 ng/ml Test 01/27/18 05:46 White Blood Count 5.95 K/uL Red Blood Count 4.60 M/uL Hemoglobin 13.4 g/dL Hematocrit 39.5 % Mean Corpuscular Volume 85.9 fL Mean Corpuscular Hemoglobin 29.1 pg Mean Corpuscular Hemoglobin Concent 33.9 g/dl RDW Standard Deviation 43.1 fL RDW Coefficient of Variation 13.8 % Platelet Count 161 K/uL Mean Platelet Volume 8.6 fL Sodium Level 141 mmol/L Potassium Level 3.4 mmol/L Chloride Level 106 mmol/L Carbon Dioxide Level 29 mmol/L Anion Gap 6.0 mmol/L Blood Urea Nitrogen 9 mg/dl Creatinine 0.65 mg/dl Est Creatinine Clear Calc Drug Dose 64.4 ml/min Estimated GFR () 94.5 Estimated GFR (Non- 81.5 BUN/Creatinine Ratio 13.9 Random Glucose 92 mg/dl Calcium Level 8.7 mg/dl Troponin I < 0.015 ng/ml Assessment and Plan 82 y/o C female with history of PAF on anticoagulation therapy presenting s/p syncopal event. Syncope- unknown etiology: - Admitted to [facility] for cardiac monitoring- no acute events - Cardiac enzymes trended- negative - ECHO- preserved EF, grade II diastolic dysfunction, no wall abnormalities - Orthostatic BPs- negative - Head CT and CXR- negative for acute processes - Cardiology consulted, appreciate recommendations- continue outpatient workup Hypokalemia: Replace w/ PO KCL supplement- follow PRP and replace PRN Paroxysmal atrial fibrillation- currently NSR- follows w/ Dr. Ritchie: Continue Digoxin, Toprol XL, Xarelto Hypothyroidism- TSH WNL: Continue Synthroid HLD: Continue Zocor Decreased appetite: - Started Megace 400 mg daily for appetite stimulant - Continue workup outpatient through PCP GERD: Protonix while inpatient- resume Prilosec at discharge DVT prophylaxis: Xarelto Code status: LEVEL V, DNR Dispo: From home- hopeful discharge tomorrow- PT/OT and CM consulted
[2018-01-27] MEDS ORDERED: DIGOXIN 0.125 MG TAB PO SCH (16:00)
[2018-01-27] MEDS: RIVAROXABAN 10 MG TAB PO SCH (17:02)
[2018-01-27 20:16] VITALS: BP 133/70; PULSE 63; TEMP 36.4; O2SAT 93
[2018-01-27] MEDS: ZOLPIDEM TARTRATE 10 MG TAB PO SCH (20:43)
[2018-01-27] MEDS: SIMVASTATIN 10 MG TAB PO SCH (20:43)
[2018-01-27 23:41] VITALS: BP 130/76; PULSE 73; TEMP 36.2; O2SAT 93
[2018-01-28 04:00] VITALS: BP 137/81; PULSE 73; TEMP 36.8; O2SAT 95
[2018-01-28] MEDS: LEVOTHYROXINE 100 MCG TAB PO SCH (06:21)
[2018-01-28 07:58] VITALS: BP 129/77; PULSE 61; TEMP 36.8; O2SAT 95
[2018-01-28 08:18] LABS: CALCIUM 8.7 mg/dl (8.5-10.1); CREATININE 0.55 mg/dl (0.60-1.20); POTASSIUM 3.4 mmol/L (3.5-5.1)
[2018-01-28] MEDS: PANTOprazole SOD 40 MG TAB PO SCH (08:31)
[2018-01-28] MEDS: METOPROLOL SUCC 50MG EXT REL TAB PO SCH (08:32)
[2018-01-28] MEDS: MULTIVITAMIN TAB PO SCH (08:32)
[2018-01-28] MEDS ORDERED: POTASSIUM CHLORIDE 20 MEQ TABCR PO ONE (09:00)
[2018-01-28] MEDS ORDERED: MEGESTROL ACETATE SUSP 400 MG/10 ML UDC PO SCH (09:00)
[2018-01-28] MEDS ORDERED: MGCUDL400 PO (09:21)
--- NOTE | 2018-01-28 09:30 | Discharge Summary ---
Discharge Summary Date of Service January 28, 2018. Discharge Summary Admission Date: January 26, 2018 at 21:01 Discharge Date: January 28, 2018 Discharge Disposition: Home Principal Diagnosis: Syncope Problems/Secondary Diagnoses: Syncope- unknown etiology grade II diastolic dysfunction Hypokalemia Paroxysmal atrial fibrillation Hypothyroidism HLD Decreased appetite fatigue GERD Immunizations: Have You Had Influenza Vaccine: Yes Influenza Vaccine Date: May 30, 2012 History of Tetanus Vaccine?: Unknown History of Pneumococcal: Yes History of Hepatitis B Vaccine: Unknown Procedures: CHEST ONE VIEW PORTABLE HISTORY: 82 years-old Female EVALUATE WEAKNESS acute weakness with syncope COMPARISON: Chest radiograph 12/27/2013 TECHNIQUE: Portable AP view of the chest FINDINGS: Cardiac silhouette is mildly enlarged. Dense calcifications of the mitral annulus. No pneumothorax, large pleural effusion or overt pulmonary edema. Subsegmental bibasilar opacities are noted. Surgical clips are seen about the left axilla. Degenerative changes of the shoulders and spine. IMPRESSION: 1. Cardiomegaly without overt pulmonary edema. 2. Subsegmental bibasilar opacities favor atelectasis. The above report was generated using voice recognition software. It may contain grammatical, syntax or spelling errors. Electronically signed by: Alex Váqzuez M.D. 01/26/2018 3:56 PM Dictated Date/Time: 01/26/2018 3:55 PM The status of this report is Signed. Draft = Not yet reviewed or approved by Radiologist. Signed = Reviewed and approved by Radiologist HEAD WITHOUT CONTRAST (CT) CLINICAL HISTORY: 82 years-old Female with syncope. Acute syncope TECHNIQUE: Multiple axial CT images of the head were obtained without contrast. A dose lowering technique was utilized adhering to the principles of ALARA. CT DOSE: 614.27 mGy.cm COMPARISON: CT head 08/17/2014. FINDINGS: No acute intracranial hemorrhage, midline shift, intracranial mass, hydrocephalus, territorial ischemia or abnormal extra-axial collection. Moderate atrophy with moderate degree of chronic microvascular ischemic changes. Remote lacunar infarctions of the basal ganglia. Cerebral vascular calcifications are seen at the level of the skull base. The calvarium is intact. The paranasal sinuses, mastoid air cells, and middle ear cavities are clear. IMPRESSION: No acute intracranial abnormality. The above report was generated using voice recognition software. It may contain grammatical, syntax or spelling errors. Electronically signed by: Alex Vázquez M.D. 01/26/2018 4:50 PM Dictated Date/Time: 01/26/2018 4:46 PM The status of this report is Signed. Draft = Not yet reviewed or approved by Radiologist. Signed = Reviewed and approved by Radiologist ECHOCARDIOGRAM: Interpretation Summary * Name: LUPILLO BELCHER Study Date: 01/27/2018 08:35 AM BP: 139/77 mmHg * [facility]1 HR: 67 * : 1935 (M/d/yyyy) Gender: Female Height: 65 in * Age: 82 yrs Ethnicity: [place] Weight: 160 lb * Ordering Physician: Gosia Desouza * Referring Physician: No Doctor, Assigned * Performed By: Gosia Castellon RDCS * * Reason For Study: SYNCOPE * BSA: 1.8 m2 * -- Conclusions -- * There is moderate concentric left ventricular hypertrophy. * Left ventricular systolic function is normal. * Diastolic dysfunction, Grade II, consistent with elevated left atrial pressure. * The left atrium is severely dilated. * Right ventricular systolic pressure is elevated at 30-40mmHg. * Compared to an echocardiogram from 2014, there has been some increased LVH and worsening diastolic function. Procedure Details * A complete two-dimensional transthoracic echocardiogram was performed (2D, M-mode, Doppler and color flow Doppler). Left Ventricle * The left ventricle is grossly normal size. * There is moderate concentric left ventricular hypertrophy. * The basal septum is thickened and angulated consistent with sigmoid septum. * Left ventricular systolic function is normal. * Ejection Fraction = 55-60%. * Diastolic dysfunction, Grade II, consistent with elevated left atrial pressure. * The left ventricular wall motion is normal. Right Ventricle * The right ventricle is normal in size and function. Atria * The left atrium is severely dilated. * The right atrium is borderline dilated. Mitral Valve * Leaflets are somewhat thickened and there is severe posterior annular calcification. When compared directly to an echocardiogram in 2014, there has been slight progression. * There is no mitral valve stenosis. * There is trace mitral regurgitation. Tricuspid Valve * The tricuspid valve is not well visualized, but is grossly normal. * There is mild tricuspid regurgitation. * Right ventricular systolic pressure is elevated at 30-40mmHg. Aortic Valve * The aortic valve is normal in structure and function. * The aortic valve is trileaflet. * No hemodynamically significant valvular aortic stenosis. * There is no significant aortic regurgitation. Pulmonic Valve * The pulmonic valve is not well visualized. Great Vessels * The aortic root is normal size. Pericardium/Pleural * There is no pericardial effusion. Consultations: Cardiology- Dr. Carrero Medication Reconciliation New Medications: Megestrol Acetate (Megestrol Acetate) 400 Mg/10 Ml Susp 400 MG PO QAM for 30 Days, #30 DOSE Continued Medications: Digoxin (Digoxin) 0.125 Mg Tab 0.125 MG PO Q2D Levothyroxine Sodium (Levothyroxine Sodium) 100 Mcg Tab 100 MCG PO QAM for 90 Days, #90 TAB 3 Refills Metoprolol Succinate (Toprol Xl) 50 Mg Tabcr 50 MG PO BID, TAB Metoprolol Tartrate (Lopressor) 50 Mg Tab 50 MG PO PRN for palpitatons, TAB Multiple Vitamin (Multivitamin) 1 Tab Tab 1 TAB PO QAM, TAB Omeprazole (Prilosec) 20 Mg Capcr 20 MG PO BID, CAP Rivaroxaban (Xarelto) 20 Mg Tab 20 MG PO QPM, TAB Simvastatin (Zocor) 10 Mg Tab 10 MG PO HS, TAB Zolpidem Tartrate (Zolpidem Tartrate) 10 Mg Tab 10 MG PO HS Referrals At Discharge Follow up Referrals: Family Practice Referral - Within 1 Week with Karin De La Cruz, DO Discharge Exam Review of Systems: Constitutional: + fatigue, No fever, No chills, No sweats, No weakness Eyes: No worsening of vision ENT: No hearing loss Respiratory: No cough, No shortness of breath, No hemoptysis Cardiovascular: No chest pain, No edema, No palpitations Abdomen: No pain, No nausea, No vomiting, No diarrhea, No constipation, No GI bleeding Musculoskeletal: No joint pain, No muscle pain, No swelling, No calf pain Genitourinary - Female: No dysuria, No hematuria Neurologic: No weakness, No numbness/tingling Psychiatric: No depression symptoms, No anxiety Endocrine: + fatigue Hematologic / Lymphatic: No abnormal bleeding/bruising Integumentary: No rash, No itch, No new/changing skin lesions Physical Exam: General Appearance: no apparent distress Eyes: normal inspection, PERRL ENT: hearing grossly normal Neck: supple Respiratory/Chest: lungs clear, no respiratory distress, no accessory muscle use Cardiovascular: regular rate, rhythm Abdomen / GI: normal bowel sounds, non tender, soft Extremities: no calf tenderness, no pedal edema Neurologic/Psychiatric: no motor/sensory deficits, alert, normal mood/affect , oriented x 3 Skin: normal color, warm/dry, no rash Hospital Course 82 y/o C female with history of PAF on anticoagulation therapy presenting s/p syncopal event. Syncope- unknown etiology: - Admitted to tele for cardiac monitoring- no acute events - Cardiac enzymes trended- negative - ECHO- preserved EF, grade II diastolic dysfunction, no wall abnormalities - Orthostatic BPs- negative - Head CT and CXR- negative for acute processes - Cardiology consulted, appreciate recommendations- continue outpatient workup, setup outpatient event monitor Hypokalemia- STABLE: Replace w/ PO KCL supplement- follow PRP and replace PRN Paroxysmal atrial fibrillation- currently NSR- follows w/ Dr. Ritchie: Continue Digoxin, Toprol XL, Xarelto Hypothyroidism- TSH WNL: Continue Synthroid HLD: Continue Zocor Decreased appetite, fatigue: - Started Megace 400 mg daily for appetite stimulant - Continue workup outpatient through PCP GERD: Protonix while inpatient- resume Prilosec at discharge DVT prophylaxis: Xarelto Code status: LEVEL V, DNR Dispo: Discharge to home Total Time Spent: Greater than 30 minutes This includes examination of the patient, discharge planning, medication reconciliation, and communication with other providers. Discharge Instructions Please refer to the electronic Patient Visit Report (Discharge Instructions) for additional information. Follow-Up Please follow-up with your PCP within 5-7 days Please follow-up with Cardiology as instructed by Dr. Carrero Please follow-up/keep all of your subspecialty appointments Additional Copies To Karin De La Cruz DO
--- NOTE | 2018-01-28 09:31 | Discharge Instructions ---
Discharge Instructions Date of Service January 28, 2018. Admission Reason for Admission: Syncope Discharge Discharge Diagnosis / Problem: Syncope Discharge Goals Goal(s): Decrease discomfort, Improve function, Increase independence, Improve disease control, Improve nutritional status, Learn about illness, Diagnostic testing, Therapeutic intervention, Prevent Disease Progression Activity Recommendations Activity Limitations: as noted below Lifting Limitations: gradually increase as tolerated Exercise/Sports Limitations: as tolerated May Resume Sexual Activity: when tolerated Shower/Bathe: no limitations Driving or Machine Use: once follow-up with PCP . Instructions / Follow-Up Instructions / Follow-Up You were admitted to [facility] due to a syncopal event. The cause of your syncope at this time is unknown. Your workup during your hospital stay was unremarkable. Cardiology has ordered an event monitor, which will be sent to your house, to further monitor for any arrhythmias (irregular heart rhythm/beat). Due to your decreased appetite, Megace 400 mg daily was added to help stimulate your appetite. It is recommended you follow-up with your PCP to further monitor/treat cause of syncope and ongoing fatigue. FOLLOW-UPS: Please follow-up with your PCP within 5-7 days Please follow-up with Cardiology as instructed by Dr. Carrero Please follow-up/keep all of your subspecialty appointments Current Hospital Diet Patient's current hospital diet: AHA Diet (Heart Healthy) Discharge Diet Recommended Diet: AHA Diet (Heart Healthy) Pending Studies Studies pending at discharge: no Laboratory Results Lipid Panel Test 01/14/18 11:04 Range/Units Triglycerides Level 150 0-150 mg/dl Cholesterol Level 140 0-200 mg/dl HDL Cholesterol 37 mg/dl Cholesterol/HDL Ratio 3.8 LDL Cholesterol, Calculated 73 mg/dl Medical Emergencies . Who to Call and When: Medical Emergencies: If at any time you feel your situation is an emergency, please call 911 immediately. . Non-Emergent Contact Non-Emergency issues call your: Primary Care Provider Call Non-Emergent contact if: you have any medication questions . . "Provider Documentation" section prepared by Elsa Guerra. .
[2018-01-28 11:24] VITALS: BP 127/77; PULSE 63; TEMP 36.9; O2SAT 94
== END 2018-01-28 13:20 | disposition home or self-care (01) | DRG 312 ==
LOC: EDBD 15:07 → C.EDC 15:08 → C.MED 21:01 → ENRESERV 21:11
PROVIDERS: ADMIT Internal Medicine; ATTEND Hospitalist
DX: R55 Syncope and collapse (principal); E87.6 Hypokalemia; R53.83 Other fatigue; R63.0 Anorexia; I48.0 Paroxysmal atrial fibrillation; I11.9 Hypertensive heart disease without heart failure; E03.9 Hypothyroidism, unspecified; E78.5 Hyperlipidemia, unspecified; K21.9 Gastro-esophageal reflux disease without esophagitis; Z51.81 Encounter for therapeutic drug level monitoring; Z79.899 Other long term (current) drug therapy; Z79.01 Long term (current) use of anticoagulants; Z66 Do not resuscitate; Z85.3 Personal history of malignant neoplasm of breast; Z85.820 Personal history of malignant melanoma of skin; Z83.3 Family history of diabetes mellitus

== ENCOUNTER → 2018-02-03 | Outpatient (CLI) | payer OTHER, MEDICARE ==
[~2018-02-03] MED LIST changes: +LNX125 PO; +MGCUDL400 PO
[2018-02-03 14:27] LABS: BLOOD UREA NITROGEN 8 mg/dl (7-18); CALCIUM 8.9 mg/dl (8.5-10.1); CARBON DIOXIDE 27 mmol/L (21-32); CREATININE 0.69 mg/dl (0.60-1.20); GLUCOSE 92 mg/dl (70-99); POTASSIUM 3.6 mmol/L (3.5-5.1); SODIUM 140 mmol/L (136-145)
== END | disposition home or self-care (01) ==
LOC: C.LABPBG 10:03
PROVIDERS: ATTEND Family Medicine
DX: E87.6 Hypokalemia (principal)

== ENCOUNTER 2019-07-18 11:57 | Inpatient (IN) ==
--- NOTE | 2019-07-18 12:02 | CT Scan Report ---
CT head/brain wo con CT DOSE: 537.48 mGy.cm HISTORY: Mental status change Stroke evaluation TECHNIQUE: Multiaxial CT images of the head were performed without the use of intravenous contrast. A dose lowering technique was utilized adhering to the principles of ALARA. Comparison: 06/16/2019 Findings: The paranasal sinuses and mastoid air cells are clear. The calvarium and skull base are int act. The ventricles and sulci are within normal limits. There is no mass, hematoma, midline shift, or acute infarct. Age-related atrophy and chronic small vessel change. Impression: 1. No acute intracranial abnormality. 2. Atrophy and chronic small vessel change. The above report was generated using voice recognition software. It may contain grammatical, syntax or spelling errors. Electronically signed by: Ministerio George M.D. 07/18/2019 12:01 PM
[2019-07-18] MEDS ORDERED: SODIUM CHLORIDE 0.9% 500 ML IV SCH (12:15)
[2019-07-18 12:25] LABS: Basophils # (auto) 0.04 K/uL (0-0.2); Basophils % (auto) 0.5 %; Eosinophils # (auto) 0.01 K/uL (0-0.5); Eosinophils % (auto) 0.1 %; Hemoglobin 15.3 g/dL (12.0-16.0); Immature Granulocytes # (auto) 0.01 K/uL (0.00-0.02); Immature Granulocytes % (auto) 0.1 %; Lymphocytes # (auto) 1.46 K/uL (1.2-3.4); Lymphocytes % (auto) 16.6 %; Mean Corpuscular Hemoglobin 30.8 pg (25-34); Mean Corpuscular Hgb Conc 34.8 g/dL (32-36); Mean Corpuscular Volume 88.5 fL (80-100); Mean Platelet Volume 8.9 fL (7.4-10.4); Monocytes # (auto) 0.59 K/uL (0.11-0.59); Monocytes % (auto) 6.7 %; Neutrophils # (auto) 6.68 K/uL (1.4-6.5); Platelet Count 189 K/uL (130-400); RDW Coefficient of Variation 14.2 % (11.5-14.5); RDW Standard Deviation 46.1 fL (36.4-46.3); Red Blood Count 4.97 M/uL (4.2-5.4); White Blood Count 8.79 K/uL (4.8-10.8)
[2019-07-18 12:34] LABS: INR 1.2 (0.9-1.1); Partial Thromboplastin Time 26.8 Seconds (21.0-31.0); Prothrombin Time 11.9 Seconds (9.0-12.0)
--- NOTE | 2019-07-18 12:38 | XRay Report ---
XR chest 1V portable CLINICAL HISTORY: cva mental status change COMPARISON STUDY: 06/12/2018 FINDINGS: Moderate cardiomegaly. Calcification mitral annulus. Prominent pulmonary vasculature. IMPRESSION: Congestive heart failure The above report was generated using voice recognition software. It may contain grammatical, syntax or spelling errors. Electronically signed by: Ministerio George M.D. 07/18/2019 12:37 PM
[2019-07-18 12:42] LABS: Alanine Aminotransferase 48 U/L (12-78); Albumin Level 3.8 gm/dl (3.4-5.0); Aspartate Aminotransferase 29 U/L (15-37); BUN Creatinine Ratio 13.3 (10-20); Blood Urea Nitrogen 10 mg/dl (7-18); Calcium 9.1 mg/dl (8.5-10.1); Carbon Dioxide 26 mmol/L (21-32); Chloride 108 mmol/L (98-107); Creatinine Clr Calc Pharmacy 66.5 ml/min; Est GFR (Non-African American) 69.9; Glucose 116 mg/dl (70-99); Magnesium 1.9 mg/dl (1.8-2.4); Potassium 3.4 mmol/L (3.5-5.1); Sodium 141 mmol/L (136-145)
[2019-07-18 12:49] LABS: Alkaline Phosphatase 80 U/L (45-117); Bilirubin,Total 0.9 mg/dl (0.2-1); Creatine Kinase 38 U/L (26-192); Creatine Kinase MB < 1.0 ng/ml (0.5-3.6); Total Protein 7.8 gm/dl (6.4-8.2); Troponin I < 0.015 ng/ml (0-0.045)
[2019-07-18] MEDS ORDERED: METOPROLOL TARTRATE 1 MG/ML VIAL IV STA (13:16)
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
[2019-07-18] MEDS ORDERED: Heparin BOLUS **ED Use Only IV STA (14:22)
[2019-07-18] MEDS: Heparin Adult STANDARD Wt-Based Dextrose 5% 25,000 units/500 mL IV SCH (14:34)
[2019-07-18] MEDS ORDERED: HEPARIN SODIUM/DEXTROSE 25,000 UNITS/500 ML BAG IV SCH (15:25)
[2019-07-18] MEDS ORDERED: ONDANSETRON INJ 2 MG/ML 2 ML VIAL IV PRN (15:25)
[2019-07-18] MEDS ORDERED: PHARMACIST DISCHARGE MED REC CONSULT PRN (15:25)
[2019-07-18] MEDS ORDERED: ACETAMINOPHEN 325 MG TAB PO PRN (15:25)
[2019-07-18] MEDS ORDERED: MAGNESIUM SULFATE / D5W 1 GM/100 ML BAG IV ONE (15:45)
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
[2019-07-18] MEDS ORDERED: OPTIRAY 320 125ml IV PRN (19:13)
--- NOTE | 2019-07-18 19:29 | CT Scan Report ---
CT angio head w con HISTORY: TIA, afib with rvr TECHNIQUE: Multiaxial CT angiography of the head was performed IV contrast: None. Maximum intensit y projection images were also obtained. A dose lowering technique was utilized [facility] the [facility]. COMPARISON: None. FINDINGS: There is no mass, hematoma, midline shift, or acute infarct. Visualized intracranial internet retailer al carotid arteries, distal vertebral arteries, and basilar artery are widely patent. There is no sig nificant stenosis, occlusion, or aneurysm seen within the bilateral ACAs, MCAs, or drug abuse resistance education officer. IMPRESSION: No significant stenosis, occlusion, or aneurysm within the [place]. The above report was generated using voice recognition software. It may contain grammatical, syntax or spelling errors. Electronically signed by: Ministerio George M.D. 07/18/2019 7:27 PM
--- NOTE | 2019-07-18 19:32 | CT Scan Report ---
CT angio neck with con HISTORY: TIA, afib with rvr TECHNIQUE: Multiaxial CT angiography of the neck was performed IV contrast: No disease All measurements were calculated based on NASCET criteria. Maximum intensity projection images were also obtained. A dose lowering technique was utilized adhering to the principles of HERVE Sanchez COMPARISON STUDY: None. FINDINGS: The aortic arch and proximal great vessels are widely patent. Plaque formation at the aparicio tid bifurcations bilaterally. 30-40% narrowing of the origins of the internal carotid arteries. No significant stenotic process of the vertebral basilar system. IMPRESSION: 1. Plaque formation of both carotid bifurcations. 2. 30-40% narrowing of the proximal internal carotid arteries bilaterally. 3. Normal vertebral basilar system. 4. No evidence for high grade or critical stenotic process. The above report was generated using voice recognition software. It may contain grammatical, syntax or spelling errors. Electronically signed by: Ministerio George M.D. 07/18/2019 7:31 PM
[2019-07-18] MEDS: SIMVASTATIN 10 MG TAB PO SCH (20:47)
[2019-07-18] MEDS: DOCUSATE SODIUM 100 MG CAP PO SCH (20:47)
[2019-07-18 21:09] LABS: Partial Thromboplastin Ratio > 5.1
[2019-07-18 21:11] LABS: Partial Thromboplastin Time > 139.0 Seconds (21.0-31.0)
[2019-07-18 22:50] LABS: Partial Thromboplastin Ratio 4.5
[2019-07-18 22:58] LABS: Partial Thromboplastin Time 123.2 Seconds (21.0-31.0)
[2019-07-19] MEDS: dilTIAZem HCl 125 MG in DEXTROSE 5% 100 ML IV SCH ×2 (01:22→12:16)
[2019-07-19] MEDS: LEVOTHYROXINE SODIUM 100 MCG TABLET PO SCH (05:46)
[2019-07-19 06:14] LABS: Basophils # (auto) 0.05 K/uL (0-0.2); Basophils % (auto) 0.5 %; Eosinophils # (auto) 0.06 K/uL (0-0.5); Eosinophils % (auto) 0.6 %; Hemoglobin 15.4 g/dL (12.0-16.0); Immature Granulocytes # (auto) 0.02 K/uL (0.00-0.02); Immature Granulocytes % (auto) 0.2 %; Lymphocytes # (auto) 1.71 K/uL (1.2-3.4); Lymphocytes % (auto) 16.1 %; Mean Corpuscular Hemoglobin 31.2 pg (25-34); Mean Corpuscular Hgb Conc 35.8 g/dL (32-36); Mean Corpuscular Volume 87.2 fL (80-100); Mean Platelet Volume 9.1 fL (7.4-10.4); Monocytes # (auto) 0.73 K/uL (0.11-0.59); Monocytes % (auto) 6.9 %; Neutrophils # (auto) 8.04 K/uL (1.4-6.5); Neutrophils % (auto) 75.7 %; Platelet Count 195 K/uL (130-400); RDW Coefficient of Variation 14.1 % (11.5-14.5); RDW Standard Deviation 45.2 fL (36.4-46.3); Red Blood Count 4.93 M/uL (4.2-5.4); White Blood Count 10.61 K/uL (4.8-10.8)
[2019-07-19 06:21] LABS: Estimated Average Glucose 114 mg/dl; Hemoglobin A1C 5.6 % (4.5-5.6)
[2019-07-19 06:39] LABS: Partial Thromboplastin Ratio 3.6
[2019-07-19 06:48] LABS: BUN Creatinine Ratio 9.7 (10-20); Calcium 8.9 mg/dl (8.5-10.1); Creatinine Clr Calc Pharmacy 66.6 ml/min; Est GFR (African American) 96.2; Potassium 2.9 mmol/L (3.5-5.1)
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
[2019-07-19] MEDS ORDERED: LORazepam 0.5 MG TAB PO ONE (09:30)
--- NOTE | 2019-07-19 09:31 | Hospitalist Progress Note ---
Date of Service July 19, 2019 Assessment & Plan (1) Acute CVA (cerebrovascular accident): - MRI brain with multiple acute and subacute left basal ganglia and adjacent left frontal and temporal lobe ischemic stroke. - CT angio head unremarkable, neck 30-40% narrowing of the proximal internal carotid arteries b/l -RUE limb restriction, neuro checks Q2H, fall precautions, typically ambulates without assistive devices but uses cane occasionally, PT/OT consults -Start ASA 81 mg daily, statin therapy -LDL 93, HbA1C 5.6 -Speech therapy eval and NPO until then to assess swallow function -Allow for permissive hypertension (2) Atrial fibrillation with RVR: Diltiazem drip - HR well controlled but BP lower throughout the day on 10ml/hr, will reduce to 5ml/hr and restart her home dose of metoprolol succinate for rate control. Convert diltiazem IV to PO tomorrow if needed. No hemorrhagic conversion on MRI. Will d/c heparin drip when restarting xarelto tonight. (3) HTN (hypertension): -Antihypertensives as above, allow for permissive hypertension (4) Hyperlipidemia: -Given her age 84 yo. I will defer increasing her statin since LDL <100 (5) Hypothyroidism: -Continue levothyroxine 100 mcg daily (6) Osteopenia: (7) Vitamin D insufficiency: -Continue supplementation, MVI to resume upon discharge (8) Memory loss: - concern for vascular dementia as outpatient - TSH unremarkable - B12 + ESR added to AM labs (9) Depression with anxiety: - Holding zolpidem 10 mg at bedtime, lorazepam 0.5 mg twice daily as needed to avoid delirium. No insomnia while in hospital as per patient. (10) Carcinoma of left breast: - From 2001, resolved. (11) DVT prophylaxis: Xarelto (for atrial fibrillation) Subjective Patient feeling well, she reports feeling no different than her usual self. Denies any weakness, change in sensation, speech, swallowing or hearing problem. Unsure why she is here or what happened. Unable to obtain history of present illness from patient. Review of Systems Review of Systems: All systems reviewed & are unremarkable except as noted in HPI & below Physical Exam Constitutional: well developed and well nourished; no acute distress Eyes: PERRL and EOM intact bilaterally; normal pupil size and no nystagmus Neck: normal visual inspection Respiratory: normal respiratory effort, lungs clear to auscultation Cardiovascular: Rate/Rhythm: + irregularly irregular Heart Sounds: + murmur Extremities: no edema Gastrointestinal (Abdomen): normal bowel sounds, soft, nontender, no hepatosplenomegaly Skin: no rashes, warm and dry Neurologic: CN's II-XI intact bilaterally, moves all extremities and awake Speech / Cognition: normal speech Motor/Sensory: + pronator drift (Mild on right side); no tremor and no sensory deficit Coordination: + abnormal [id number] test (mildly worse on right > left) Psychiatric: Orientation: alert, oriented to person and oriented to place; + not oriented to time Results & Data Vital Signs (Past 12 Hours) Vital Signs Temp Pulse Resp BP BP Pulse Ox Pulse Ox 07/19/19 07:45 97.9 F 96 H 18 133/74 93 07/19/19 04:32 97.9 F 97 H 20 152/90 H 94 07/19/19 00:00 94 07/18/19 23:42 98.2 F 113 H 22 131/93 94 07/18/19 23:00 95 PG Care Time/CCT Total # of Minutes Spent Total Time Spent with Patient: Total time spent is greater than 50% in coordination of care (as documented) at patient's floor/unit and/or counseling patient: (1) Hyperlipidemia Hyperlipidemia type: unspecified Qualified Code(s): E78.5 - Hyperlipidemia, unspecified (2) Hypothyroidism Hypothyroidism type: unspecified Qualified Code(s): E03.9 - Hypothyroidism, unspecified (3) HTN (hypertension) Hypertension type: essential hypertension Qualified Code(s): I10 - Essential (primary) hypertension
[2019-07-19] MEDS: DOCUSATE SODIUM 100 MG CAP PO SCH ×2 (09:54→20:47)
[2019-07-19] MEDS: ASPIRIN 81 MG ECTAB PO SCH (09:54)
[2019-07-19] MEDS: POTASSIUM CHLORIDE / WTR 10 MEQ/100 ML PLCT IV SCH ×2 (09:55→11:16)
[2019-07-19] MEDS: Heparin Adult STANDARD Wt-Based Dextrose 5% 25,000 units/500 mL IV SCH (12:01)
[2019-07-19] MEDS ORDERED: GADOBUTROL 65ML VIAL IV PRN (13:30)
--- NOTE | 2019-07-19 14:16 | Magnetic Resonance Report ---
MRI OF THE BRAIN WITHOUT AND WITH IV CONTRAST CLINICAL HISTORY: right sided weakness, expressive aphasia COMPARISON STUDY: MRI of the brain July 02, [address] and CTA of the head July 18, 2019 . TECHNIQUE: Utilizing a 1.5 Kathleen magnet and dedicated coil, multiplanar, multiecho imaging of the br ain was performed pre and postcontrast administration. IV administration of 6 mL of Gadavist contras t was uneventful. FINDINGS: Note is made of multiple acute to subacute infarcts within left basal ganglia and the adjac ent left frontal and temporal lobes. The largest focus of infarction measures 3.2 cm. There is no sig nificant mass effect. No hemorrhage is identified. Ventricular system is stable. Basilar cisterns are patent. There are no extra axial collections. There is no intracranial mass or pathologic enhancemen t. Calvarial signal is maintained. White matter T2 hyperintense foci reflect small vessel disease. IMPRESSION: Multiple acute to subacute infarcts within the left basal ganglia and the adjacent left frontal and t emporal lobes. No significant mass effect. No hemorrhage. Electronically signed by: Danie Anthony M.D. 07/19/2019 2:15 PM
[2019-07-19 16:08] LABS: Partial Thromboplastin Ratio 2.7
[2019-07-19] MEDS: RIVAROXABAN 20 MG TAB PO SCH (16:20)
[2019-07-19] MEDS ORDERED: METOPROLOL SUCC 50MG EXT REL TAB PO STA (17:26)
[2019-07-19] MEDS ORDERED: POTASSIUM CHLORIDE 20 MEQ TABCR PO STA (20:15)
[2019-07-19] MEDS: SIMVASTATIN 10 MG TAB PO SCH (20:47)
[2019-07-20] MEDS: dilTIAZem HCl 125 MG in DEXTROSE 5% 100 ML IV SCH (03:13)
[2019-07-20] MEDS: LEVOTHYROXINE SODIUM 100 MCG TABLET PO SCH (05:58)
[2019-07-20 07:10] LABS: Basophils # (auto) 0.03 K/uL (0-0.2); Basophils % (auto) 0.4 %; Eosinophils # (auto) 0.14 K/uL (0-0.5); Eosinophils % (auto) 1.9 %; Hemoglobin 14.6 g/dL (12.0-16.0); Immature Granulocytes # (auto) 0.01 K/uL (0.00-0.02); Immature Granulocytes % (auto) 0.1 %; Lymphocytes # (auto) 1.61 K/uL (1.2-3.4); Lymphocytes % (auto) 21.9 %; Mean Corpuscular Hemoglobin 30.5 pg (25-34); Mean Corpuscular Hgb Conc 35.6 g/dL (32-36); Mean Corpuscular Volume 85.8 fL (80-100); Monocytes # (auto) 0.72 K/uL (0.11-0.59); Monocytes % (auto) 9.8 %; Neutrophils # (auto) 4.83 K/uL (1.4-6.5); Neutrophils % (auto) 65.9 %; Platelet Count 207 K/uL (130-400); RDW Coefficient of Variation 14.2 % (11.5-14.5); RDW Standard Deviation 44.2 fL (36.4-46.3); Red Blood Count 4.78 M/uL (4.2-5.4); White Blood Count 7.34 K/uL (4.8-10.8)
[2019-07-20 08:01] LABS: BUN Creatinine Ratio 12.6 (10-20); Calcium 8.9 mg/dl (8.5-10.1); Creatinine Clr Calc Pharmacy 58.6 ml/min; Est GFR (African American) 92.2; Est GFR (Non-African American) 79.6; Potassium 3.4 mmol/L (3.5-5.1)
[2019-07-20] MEDS: DOCUSATE SODIUM 100 MG CAP PO SCH ×2 (08:23→20:23)
[2019-07-20] MEDS: ASPIRIN 81 MG ECTAB PO SCH (08:23)
--- NOTE | 2019-07-20 08:42 | Neurology Progress Note ---
Date of Service July 20, 2019 Assessment & Plan (1) Acute CVA (cerebrovascular accident): (2) Weakness of right side of body: (3) Dysarthria: (4) Expressive aphasia: (5) Atrial fibrillation with RVR: (6) Carotid stenosis, bilateral: (7) Hypertension: (8) Memory loss: This patient had the acute onset of right hemiparesis, word-finding/expressive aphasia, and dysarthria either late July 17 or early July 18. This is likely secondary to an ischemic stroke in the left middle cerebral artery distribution. CT angiography has changes (reviewed today with the radiologist) that suggests an ischemic distal M1 section in the left middle cerebral artery. CT scan of the head showed no hemorrhage. Overall, clinically, she is improved with her deficits. Currently, her exam shows a slight right hemiparesis in the arm , with no significant weakness in the leg or face. She also has some mild dysarthria and word-finding difficulty/expressive aphasia (somewhat better than yesterday). She seems stable neurologically does not appear overtly depressed. Risk factors for stroke include hypertension and dyslipidemia as well as advanced age. She has atrial fibrillation but I do not believe this stroke was embolic (although this cannot entirely be excluded). She does have a mild bilateral carotid stenosis proximally (30-40%), as noted on CT angiography. Other vessels in the head and neck are unremarkable with no significant stenoses or vessel anomalies. Patient has a history of memory loss mostly short-term which is been progressive. 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 She does have atrophy in general and some history of small vessel ischemic disease and previous studies. An MRI was attempted several weeks ago but she could not tolerate the procedure. Recommendations: 1. Continue 81 mg aspirin tablet daily to prevent small vessel ischemic di sease. She does have a history of GI bleed but her risk of stroke outweighs this at this time. Therefore, she will be on Xarelto and 81 mg aspirin. 2. Control hypertension as you are doing a me for a mean arterial pressure of 95-100 3. Continue current statin dose. Her lipid parameters are good and with her advanced age she is not a high dose statin candidate. 4. Physical, occupational, and speech therapy consults. She would be a good rehabilitation hospital candidate once she is stable. 5. There is no need for a vascular surgery consult given her mi carotid stenosis bilaterally. 6. I see no need for additional neurologic testing at this time. 7. Assess over the next day or so for depression. If depression is significant enough I would initiate 10 milligrams fluoxetine daily and titrate as needed. 8. Follow-up lung nodule as per primary care. Overall, I spent a total of 70 minutes with this case including review of records, review of CT and MRI films, direct evaluation the patient at bedside, and discussion of the case with the patient at bedside, RN at bedside, Dr. Vázquez radiology, and Dr. Hernandez, including differential diagnosis and treatment options. Subjective Patient has no complaint of pain or headache. Nursing felt that she was somewhat depressed early this morning but patient herself denies any significant depression or mood issues. Her vision is good and she feels her right arm and leg are moving well. She feels that her speech is fine also. MRI of the brain showed scattered acute/subacute infarcts in the left middle cerebral artery territory including the left basal ganglia area and left frontal and temporal lobes adjacent Tuan. There were various degrees of involvement in that area. In addition she has moderate generalized atrophy and moderate old small vessel ischemic changes. I reviewed these films with the radiologist. Also, we reviewed CT angiography of the head and it shows a distal M1 stenosis on the left heading into M2 with the M2 cutting off distally as well. CBC was unremarkable. Sed rate was 20. TSH was 2.3 and vitamin B12 is 721. Potassium is improved to 3.4 the rest of the Chem profile was unremarkable. Blood pressure this morning is 97/65 and she is in AFib , albeit in a better controlled rate, in the 70-80 range. Physical Exam Physical Exam: She is awake and alert. She has some dysarthria on speech and some word-finding difficulties with naming objects and coming up with words she wants to say. She can correctly identify the word given a series of 3 to choose from. She can describe the NIH Stroke Scale picture much better than yesterday and she can read words very well. She follows commands well but does have memory deficits from her events. She does not seem anxious or depressed today. With outstretched arms there may be a very slight drift on the right. [id number] testing is clumsy on the right and has some mild tremor on the left. Strength is 5/5 diffusely in all major muscle groups of the left arm and leg both proximally and distally. The right lower extremity seems close to 5/5 today as well. The right upper extremity has some mild clumsiness and weakness at a 4+/5 level diffusely. Results & Data Vital Signs (Past 12 Hours) Vital Signs Temp Pulse Pulse Resp BP BP Pulse Ox 07/20/19 07:33 36.9 C 99 H 16 97/65 L 95 07/20/19 02:50 36.5 C 86 20 144/77 H 94 07/19/19 23:41 36.6 C 60 19 102/78 92 Diagnostic Findings MRI OF THE BRAIN WITHOUT AND WITH IV CONTRAST CLINICAL HISTORY: right sided weakness, expressive aphasia COMPARISON STUDY: MRI of the brain July 02, [address] and CTA of the head July 18, 2019. TECHNIQUE: Utilizing a 1.5 Kathleen magnet and dedicated coil, multiplanar, multiecho imaging of the brain was performed pre and postcontrast administration. IV administration of 6 mL of Gadavist contrast was uneventful. FINDINGS: Note is made of multiple acute to subacute infarcts within left basal ganglia and the adjacent left frontal and temporal lobes. The largest focus of infarction measures 3.2 cm. There is no significant mass effect. No hemorrhage is identified. Ventricular system is stable. Basilar cisterns are patent. There are no extra axial collections. There is no intracranial mass or pathologic enh ancement. Calvarial signal is maintained. White matter T2 hyperintense foci reflect small vessel disease. IMPRESSION: Multiple acute to subacute infarcts within the left basal ganglia and the adjac ent left frontal and temporal lobes. No significant mass effect. No hemorrhage. Electronically signed by: Danie Anthony M.D. 07/19/2019 2:15 PM PG Care Time/CCT Total # of Minutes Spent Total Time Spent with Patient: Total time spent is greater than 50% in coordination of care (as documented) at patient's floor/unit and/or counseling patient:
[2019-07-20] MEDS: DIGOXIN 0.125 MG TAB PO SCH (14:55)
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
[2019-07-20] MEDS ORDERED: METOPROLOL SUCC 50MG EXT REL TAB PO STA (15:55)
[2019-07-20] MEDS: RIVAROXABAN 20 MG TAB PO SCH (18:16)
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
[2019-07-20] MEDS: SIMVASTATIN 10 MG TAB PO SCH (20:23)
[2019-07-21] MEDS: LEVOTHYROXINE SODIUM 100 MCG TABLET PO SCH (05:56)
[2019-07-21 06:53] LABS: BUN Creatinine Ratio 20.1 (10-20); Calcium 8.9 mg/dl (8.5-10.1); Creatinine Clr Calc Pharmacy 56.9 ml/min; Est GFR (African American) 91.4; Est GFR (Non-African American) 78.8; Potassium 3.3 mmol/L (3.5-5.1)
[2019-07-21 07:38] LABS: Appearance Urine Clear (Clear); Bacteria Urine Automated Negative (Negative); Bilirubin Urine Negative (Negative); Blood Urine 1+ (Negative); Color Urine Yellow; Glucose Urine UA Negative (Negative); Ketones Urine Negative (Negative); Leukocyte Esterase Urine 3+ (Negative); Nitrite Urine Negative (Negative); Protein Urine Negative (Negative); Specific Gravity Urine 1.016 (1.000-1.030); Urobilinogen Urine Negative (Negative)
[2019-07-21] MEDS ORDERED: POTASSIUM CHLORIDE 20 MEQ TABCR PO STA (07:48)
[2019-07-21] MEDS: DOCUSATE SODIUM 100 MG CAP PO SCH (08:09)
[2019-07-21] MEDS: ASPIRIN 81 MG ECTAB PO SCH (08:09)
[2019-07-21] MEDS: DIGOXIN 0.125 MG TAB PO SCH (08:10)
[2019-07-21] MEDS ORDERED: POTASSIUM CHLORIDE 20 MEQ TABCR PO SCH (09:00)
[2019-07-21] MEDS ORDERED: METOPROLOL SUCC 50MG EXT REL TAB PO SCH ×2 (09:00)
[2019-07-21] MEDS ORDERED: STROKE PATIENT DISCHARGE STA (11:19)
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
[2019-07-21 11:47] VITALS: BP 99/65; PULSE 85; TEMP 97.7; O2SAT 97
[2019-07-21] MEDS ORDERED: SIMVASTATIN 20 MG TAB PO SCH (21:00)
== END 2019-07-21 13:50 | DRG 65 ==
LOC: ED 11:57 → SUATTDRO 13:52 → 2S 13:52